=== PATIENT | female | born 1980 | race African-American/Black ===

== ENCOUNTER 2019-09-11 08:39 | Inpatient (IN) | payer BC ==
[2019-09-11] MEDS ORDERED: FLU VACC QUAD 2019-20 (3 YR UP)/PF 60 MCG/0.5 ML SYRINGE IM ONE (10:06)
[2019-09-11] MEDS ORDERED: TERBUTALINE 1 MG/1 ML INJ SUB-Q PRN (10:56)
[2019-09-11] MEDS ORDERED: ONDANSETRON 4 MG/2 ML INJ IV PRN (10:56)
[2019-09-11] MEDS ORDERED: ePHEDrine SULFATE 50 MG/1 ML INJ IV PRN (10:56)
[2019-09-11] MEDS ORDERED: MINERAL OIL 30 ML ORAL LIQD PO PRN (10:56)
[2019-09-11] MEDS ORDERED: TERBUTALINE 1 MG/1 ML INJ IVP PRN (10:56)
[2019-09-11] MEDS ORDERED: DEXTROSE 50% IN WATER (25GM) 50 ML SYRINGE IV PRN (10:58)
[2019-09-11] MEDS ORDERED: OXYTOCIN 20 UNIT/1000ML DRIP 20 UNITS/1,000 ML BAG IV SCH (11:00)
[2019-09-11 11:20] LABS: Hematocrit 32.7 % (30.3-42.9); Hemoglobin 10.8 gm/dl (10.1-14.3); Mean Corpuscular HGB Conc 33 % (30-34); Mean Corpuscular Volume 85 fl (79-97); Platelet Count 218 K/mm3 (140-440); Red Blood Count 3.83 M/mm3 (3.65-5.03); Red Cell Distribution Width 13.7 % (13.2-15.2)
[2019-09-11] MEDS: LACTATED RINGERS 1,000 ML IV SCH ×2 (11:24→16:59)
[2019-09-11] MEDS ORDERED: INSULIN REGULAR, HUMAN 100 UNITS/1 ML SUB-Q SCH (11:30)
[2019-09-11] MEDS ORDERED: LIDOCAINE (2%) 20 MG/1 ML VIAL 20 ML MDV INFILTRATI ONE (11:56)
[2019-09-11] MEDS ORDERED: DINOPROSTONE 10 MG VAG SUPP VG ONE (12:00)
[2019-09-11] MEDS: INSULIN REGULAR, HUMAN 100 UNITS/1 ML SUB-Q SCH ×2 (12:00→18:12)
--- NOTE | 2019-09-11 12:43 | History and Physical Report ---
History of Present Illness Date of examination: 09/11/19 (Pt here for IOL due to insulin dependent GDM) Date of admission: 09/11/19 08:40 Chief complaint: Here for IOL d/t GDM, insulin dependent. History of present illness: EDC Calculations LMP: 09/13/2019 EDC Confirmation: 09/13/2019 Gestational Age: 19 5/7 weeks Past History : 2 Term Births: 1 Premature Births: 0 Living Children: 1 Para: 1 Mult. Births: 0 Prev : 0 Prev. attempt? 0 Aborta: 0 Elect. Ab: 0 Spont. 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 lives with and soledad unemployed denies alcohol or drug use Infection History Hx of STD: none HIV Risk Eval: no Hepatitis B Risk Eval: low risk Personal hx. of genital herpes: no Partner hx. of genital herpes: no Rash, Viral, or Febrile illness since last LMP? no Varicella/Chicken Pox Status: Unknown TB Risk: no Genetic History ADVANCED MATERNAL AGE Congenital Heart Defect: Mom: no Dad: no Jocelyne Disease: Mom: no Dad: no Thalassemia Mom: no Dad: no Neural Tube Defect Mom: no Dad: no Down's Syndrome Mom: no Dad: no Richie-Sachs Mom: no Dad: no Sickle Cell Disease/Trait Mom: no Dad: no Hemophilia Mom: no Dad: no Muscular Dystrophy Mom: no Dad: no Cystic Fibrosis Mom: no Dad: no [place] Chorea Mom: no Dad: no Mental Retardation Mom: no Dad: no Fragile X Mom: no Dad: no Other Genetic/Chromosomal Disorder Mom: no Dad: no Child w/other defect Mom: no Dad: no Enviromental Exposures Enviromental Exposures Reviewed Xray Exposure: no Medication, drug, or alcohol use since LMP: no Chemical/Other Exposure: no Exposure to Cat Liter: no Hx of Parvovirus (Fifth Disease): no Occupational Exposure to Children: none Active Medications (reviewed today): PNV () Current Allergies (reviewed today): No known allergies Past History Past Medical History: no pertinent history Past Surgical History: other (Left ovarian cystecomy) GIS COORDINATOR History: other (Left ovarian cystectomy) Family/Genetic History: none Social history: no significant social history - Obstetrical History Expected Date of Delivery: 09/13/19 Actual Gestation: 39 Week(s) 5 Day(s) : 2 Para: 1 Hx # Term Pregnancies: 1 Number of Pregnancies: 0 Spontaneous Abortions: 0 Induced : 0 Number of Living Children: 1 Medications and Allergies Allergies Allergy/AdvReac Type Severity Reaction Status Date / Time No Known Allergies Allergy Verified 09/11/19 09:59 Active Meds: Active Medications Dextrose (D50w (25gm) Syringe) 50 ml IV Q30MIN PRN; Protocol PRN Reason: Hypoglycemia Ephedrine Sulfate (Ephedrine Sulfate) 10 mg IV Q2M PRN PRN Reason: Hypotension Fentanyl (Sublimaze) 100 mcg IV Q2H PRN PRN Reason: Labor Pain Oxytocin/Sodium Chloride (Pitocin/Ns 20 Unit/1000ml Drip) 20 units in 1,000 mls @ 125 mls/hr IV DIRECT TAMIKA Lactated Ringer's (Lactated Ringers) 1,000 mls @ 125 mls/hr IV DIRECT TAMIKA Last Admin: 09/11/19 11:24 Dose: 125 mls/hr Documented by: Insulin Human Regular (Humulin R) 0 units SUB-Q Q6HR TAMIKA; Protocol Mineral Oil (Mineral Oil) 30 ml PO QHS PRN PRN Reason: Constipation Ondansetron HCl (Zofran) 4 mg IV Q8H PRN PRN Reason: Nausea And Vomiting Terbutaline Sulfate (Brethine) 0.25 mg SUB-Q ONCE PRN PRN Reason: Hyperstimulation/Hypertonicity Terbutaline Sulfate (Brethine) 0.25 mg IVP ONCE PRN PRN Reason: Hyperstimulation/Hypertonicity - Vital Signs Vital signs: Vital Signs Pulse BP 122 H 112/65 09/11/19 09:11 09/11/19 09:11 Temp Pulse Resp BP Pulse Ox 98.5 F 110 H 18 107/63 99 09/11/19 10:07 09/11/19 12:33 09/11/19 10:07 09/11/19 10:08 09/11/19 12:33 - Physical Exam Breasts: Positive: deferred Cardiovascular: Regular rate Lungs: Positive: Normal air movement Abdomen: Positive: normal appearance Genitourinary (Female): Positive: normal external genitalia, normal perenium Vulva: both: normal Vagina: Positive: normal moisture Uterus: Positive: normal size Anus/Rectum: Positive: normal perianal skin Extremities: Positive: normal Deep Tendon Reflex Grade: Normal +2 - Obstetrical FHR: category 1 Uterine Contraction Monitor Mode: External Cervical Dilatation: 0 (Per RN taking care of patient) Cervical Effacement Percentage: 0 station: High Uterine Contraction Pattern: Irregular Uterine Tone Measurement Phase: Resting Uterine Contraction Intensity: Mild Results Result Diagrams: 09/11/19 10:50 Abnormal lab results 09/11/19 Range/Units 10:50 WBC 12.7 H (4.5-11.0) K/mm3 All other labs normal. GBS negative Hep B positive HBsAg Screen "Result Below..." Negative *1 RESULT: Confirm. indicated Tests: (2) HBsAg Confirmation ([id number]) ! HBsAg Confirmation [A] Positive *2 Result confirmed by neutralization. Tests: (3) Profile I ([id number]) RPR Non Reactive Non Reactive *3 Rubella Antibodies, IgG 1.93 index Immune >0.99 *4 Non-immune <0.90 Equivocal 0.90 - 0.99 Immune >0.99 ABO Grouping O *5 Rh Factor Positive *6 Please note: Prior records for this patient's ABO / Rh type are not available for additional verification. Antibody Screen Negative Negative *7 WBC [H] 13.2 x10E3/uL 3.4-10.8 *8 RBC 3.78 x10E6/uL 3.77-5.28 *9 Hemoglobin 11.1 g/dL 11.1-15.9 *10 Hematocrit 34.4 % 34.0-46.6 *11 MCV 91 fL 79-97 *12 MCH 29.4 pg 26.6-33.0 *13 MCHC 32.3 g/dL 31.5-35.7 *14 RDW 14.5 % 12.3-15.4 *15 Platelets 238 x10E3/uL 150-450 *16 Neutrophils 76 % Not Estab. *17 Lymphs 16 % Not Estab. *18 Monocytes 6 % Not Estab. *19 Eos 1 % Not Estab. *20 Basos 0 % Not Estab. *21 ! Immature Cells <No Reported Value> *22 Neutrophils (Absolute) [H] 10.0 x10E3/uL 1.4-7.0 *23 Lymphs (Absolute) 2.2 x10E3/uL 0.7-3.1 *24 Monocytes(Absolute) 0.8 x10E3/uL 0.1-0.9 *25 Eos (Absolute) 0.1 x10E3/uL 0.0-0.4 *26 Baso (Absolute) 0.0 x10E3/uL 0.0-0.2 *27 ! Immature Granulocytes 1 % Not Estab. *28 ! Immature Grans (Abs) 0.1 x10E3/uL 0.0-0.1 *29 ! NRBC <No Reported Value> *30 Hematology Comments: <No Reported Value> *31 Tests: (4) HB Solu + Rflx [facility] ([id number]) Hemoglobin (Hgb) Solubility Negative Negative *32 Tests: (5) Panel [id number] ([id number]) HIV Screen 4th Generation wRfx Non Reactive Non Reactive *33 Tests: (6) HCV Ab w/Rflx to Verification ([id number]) ! HCV Ab <0.1 s/co ratio 0.0-0.9 *34 Tests: (7) Comment: ([id number]) ! Comment: [facility] *35 Non reactive HCV antibody screen is consistent with no HCV infection, unless recent infection is suspected or other evidence exists to indicate HCV infection. Tests: (8) Urine Culture, Routine ([id number]) Urine Culture, Routine Final report *36 Tests: (9) Result ([id number]) ! Result 1 No growth *37 Assessment and Plan A: 39 y.o. @ 39 wks + for IOL d/t GDM. Cervidil placed at 1000am. GBS negative, Hep B positive. P: Admit for IOL Cervidil to be taken out at 10pm Monitor blood glucose q 6 hours and AC/HS - Patient Problems (1) 39 weeks gestation of Current Visit: Yes Status: Acute Plan to address problem: IOL, Monitor maternal and status. (2) Insulin controlled gestational diabetes mellitus (GDM) in third trimester Current Visit: Yes Status: Acute Plan to address problem: Will monitor blood glucose levels q 6 hours and AC/HS. Hypoglycemia to be managed per protocol.
[2019-09-11] MEDS ORDERED: ZOLPIDEM 5 MG TAB PO PRN (15:54)
--- NOTE | 2019-09-11 16:03 | Progress Note ---
Assessment and Plan A: 39 y.o. 39+ wks here for IOL d/t GDM, insulin controlled. P: Regular diabetic diet tonight. Remove Cervidil at 2200. Additional cervidil to be placed at 2200. Continue to monitor maternal and status. - Patient Problems (1) 39 weeks gestation of Current Visit: Yes Status: Acute (2) Insulin controlled gestational diabetes mellitus (GDM) in third trimester Current Visit: Yes Status: Acute Subjective - Subjective Date of service: 09/11/19 (Pt feeling some contractions) Interval history: EDC Calculations LMP: 09/13/2019 EDC Confirmation: 09/13/2019 Gestational Age: 19 5/7 weeks Past History : 2 Term Births: 1 Premature Births: 0 Living Children: 1 Para: 1 Mult. Births: 0 Prev : 0 Prev. attempt? 0 Aborta: 0 Elect. Ab: 0 Spont. 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 lives with and soledad unemployed denies alcohol or drug use Infection History Hx of STD: none HIV Risk Eval: no Hepatitis B Risk Eval: low risk Personal hx. of genital herpes: no Partner hx. of genital herpes: no Rash, Viral, or Febrile illness since last LMP? no Varicella/Chicken Pox Status: Unknown TB Risk: no Genetic History ADVANCED MATERNAL AGE Congenital Heart Defect: Mom: no Dad: no Jocelyne Disease: Mom: no Dad: no Thalassemia Mom: no Dad: no Neural Tube Defect Mom: no Dad: no Down's Syndrome Mom: no Dad: no Richie-Sachs Mom: no Dad: no Sickle Cell Disease/Trait Mom: no Dad: no Hemophilia Mom: no Dad: no Muscular Dystrophy Mom: no Dad: no Cystic Fibrosis Mom: no Dad: no [place] Chorea Mom: no Dad: no Mental Retardation Mom: no Dad: no Fragile X Mom: no Dad: no Other Genetic/Chromosomal Disorder Mom: no Dad: no Child w/other defect Mom: no Dad: no Enviromental Exposures Enviromental Exposures Reviewed Xray Exposure: no Medication, drug, or alcohol use since LMP: no Chemical/Other Exposure: no Exposure to Cat Liter: no Hx of Parvovirus (Fifth Disease): no Occupational Exposure to Children: none Active Medications (reviewed today): PNV () Current Allergies (reviewed today): No known allergies Objective - Vital Signs Vital Signs: Vital Signs - 12hr 09/11/19 09/11/19 09/11/19 09:11 10:07 10:08 Temperature 98.5 F Pulse Rate 122 H 96 H 113 H Respiratory 18 Rate Blood Pressure 112/65 107/63 Blood Pressure 107/63 [Right] O2 Sat by Pulse 98 Oximetry 09/11/19 09/11/19 09/11/19 10:18 10:23 10:28 Temperature Pulse Rate 112 H 107 H 115 H Respiratory Rate Blood Pressure Blood Pressure [Right] O2 Sat by Pulse 97 98 98 Oximetry 09/11/19 09/11/19 09/11/19 10:33 10:38 10:43 Temperature Pulse Rate 112 H 126 H 127 H Respiratory Rate Blood Pressure Blood Pressure [Right] O2 Sat by Pulse 99 98 99 Oximetry 09/11/19 09/11/19 09/11/19 10:48 10:53 10:58 Temperature Pulse Rate 120 H 107 H 121 H Respiratory Rate Blood Pressure Blood Pressure [Right] O2 Sat by Pulse 98 98 98 Oximetry 09/11/19 09/11/19 09/11/19 11:03 11:08 11:13 Temperature Pulse Rate 105 H 121 H 114 H Respiratory Rate Blood Pressure Blood Pressure [Right] O2 Sat by Pulse 99 99 98 Oximetry 09/11/19 09/11/19 09/11/19 11:18 11:23 11:28 Temperature Pulse Rate 115 H 111 H 111 H Respiratory Rate Blood Pressure Blood Pressure [Right] O2 Sat by Pulse 98 98 98 Oximetry 09/11/19 09/11/19 09/11/19 11:33 11:38 11:43 Temperature Pulse Rate 108 H 110 H 119 H Respiratory Rate Blood Pressure Blood Pressure [Right] O2 Sat by Pulse 99 98 99 Oximetry 09/11/19 09/11/19 09/11/19 11:48 11:53 11:58 Temperature Pulse Rate 115 H 114 H 107 H Respiratory Rate Blood Pressure Blood Pressure [Right] O2 Sat by Pulse 99 98 98 Oximetry 09/11/19 09/11/19 09/11/19 12:03 12:08 12:13 Temperature Pulse Rate 116 H 109 H 109 H Respiratory Rate Blood Pressure Blood Pressure [Right] O2 Sat by Pulse 98 98 98 Oximetry 09/11/19 09/11/19 09/11/19 12:18 12:23 12:28 Temperature Pulse Rate 115 H 109 H 123 H Respiratory Rate Blood Pressure Blood Pressure [Right] O2 Sat by Pulse 98 99 98 Oximetry 09/11/19 09/11/19 09/11/19 12:33 12:38 12:43 Temperature Pulse Rate 110 H 108 H 121 H Respiratory Rate Blood Pressure Blood Pressure [Right] O2 Sat by Pulse 99 98 98 Oximetry 09/11/19 09/11/19 09/11/19 12:48 12:53 12:58 Temperature Pulse Rate 112 H 112 H 111 H Respiratory Rate Blood Pressure Blood Pressure [Right] O2 Sat by Pulse 98 98 98 Oximetry 09/11/19 09/11/19 09/11/19 13:03 13:08 13:13 Temperature Pulse Rate 115 H 101 H 106 H Respiratory Rate Blood Pressure Blood Pressure [Right] O2 Sat by Pulse 97 98 97 Oximetry 09/11/19 09/11/19 09/11/19 13:18 13:23 13:28 Temperature Pulse Rate 101 H 103 H 106 H Respiratory Rate Blood Pressure Blood Pressure [Right] O2 Sat by Pulse 98 97 97 Oximetry 09/11/19 09/11/19 09/11/19 13:33 13:38 13:43 Temperature Pulse Rate 111 H 111 H 115 H Respiratory Rate Blood Pressure Blood Pressure [Right] O2 Sat by Pulse 97 97 98 Oximetry 09/11/19 09/11/19 09/11/19 13:48 13:53 13:56 Temperature Pulse Rate 122 H 110 H 116 H Respiratory 16 Rate Blood Pressure Blood Pressure 107/63 [Right] O2 Sat by Pulse 97 98 98 Oximetry 09/11/19 09/11/19 09/11/19 13:58 14:03 14:08 Temperature Pulse Rate 114 H 118 H 107 H Respiratory Rate Blood Pressure Blood Pressure [Right] O2 Sat by Pulse 98 98 99 Oximetry 09/11/19 09/11/19 09/11/19 14:13 14:18 14:23 Temperature Pulse Rate 109 H 110 H 114 H Respiratory Rate Blood Pressure Blood Pressure [Right] O2 Sat by Pulse 98 98 98 Oximetry 09/11/19 09/11/19 09/11/19 14:28 14:33 14:38 Temperature Pulse Rate 111 H 105 H 110 H Respiratory Rate Blood Pressure Blood Pressure [Right] O2 Sat by Pulse 98 98 98 Oximetry 09/11/19 09/11/19 09/11/19 14:43 14:48 15:17 Temperature Pulse Rate 111 H 119 H 111 H Respiratory Rate Blood Pressure Blood Pressure [Right] O2 Sat by Pulse 98 98 99 Oximetry 09/11/19 09/11/19 09/11/19 15:22 15:23 15:24 Temperature 98.8 F Pulse Rate 102 H 107 H 108 H Respiratory 18 Rate Blood Pressure 103/67 Blood Pressure 103/67 [Right] O2 Sat by Pulse 98 98 Oximetry 09/11/19 09/11/19 09/11/19 15:27 15:32 15:37 Temperature Pulse Rate 111 H 102 H 109 H Respiratory Rate Blood Pressure Blood Pressure [Right] O2 Sat by Pulse 99 98 98 Oximetry 09/11/19 09/11/19 09/11/19 15:42 15:47 15:52 Temperature Pulse Rate 109 H 127 H 108 H Respiratory Rate Blood Pressure Blood Pressure [Right] O2 Sat by Pulse 98 98 99 Oximetry 09/11/19 15:57 Temperature Pulse Rate 101 H Respiratory Rate Blood Pressure Blood Pressure [Right] O2 Sat by Pulse 97 Oximetry - Exam Cardiovascular: Regular rate, Normal S1, Normal S2 Lungs: Normal air movement Abdomen: Present: normal appearance Uterine Contraction Pattern: Irregular Uterine Tone Measurement Phase: Resting Uterine Contraction Intensity: Mild Extremities: normal Deep Tendon Reflex Grade: Normal +2 - Labs Labs: Abnormal Labs 09/11/19 10:50 WBC 12.7 H Laboratory Results - last 24 hr 09/11/19 09/11/19 09/11/19 10:50 10:50 10:50 WBC 12.7 H RBC 3.83 Hgb 10.8 Hct 32.7 MCV 85 MCH 28 MCHC 33 RDW 13.7 Plt Count 218 POC Glucose Hemoglobin A1c 5.5 Syphilis IgG Antibody Blood Type O POSITIVE Antibody Screen Negative 09/11/19 09/11/19 10:50 11:53 WBC RBC Hgb Hct MCV MCH MCHC RDW Plt Count POC Glucose 100 Hemoglobin A1c Syphilis IgG Antibody Non-reactive Blood Type Antibody Screen
[2019-09-11] MEDS: fentaNYL 100 MCG/2 ML INJ IV PRN ×2 (17:28→20:54)
--- NOTE | 2019-09-11 19:50 | Progress Note ---
Assessment and Plan A: 39 y.o. 38+ wks, IOL for GDM, insulin dependent. P: Continue with cervidil protocol until pulled. When cervidil pulled, start low dose pitocin. Continue to monitor maternal and status. - Patient Problems (1) 39 weeks gestation of Current Visit: Yes Status: Acute (2) Insulin controlled gestational diabetes mellitus (GDM) in third trimester Current Visit: Yes Status: Acute Subjective - Subjective Date of service: 09/11/19 (Pt feeling some contractions.) Principal diagnosis: IOL # 38 wks for GDM, insulin dependent Interval history: EDC Calculations LMP: 09/13/2019 EDC Confirmation: 09/13/2019 Gestational Age: 19 5/7 weeks Past History : 2 Term Births: 1 Premature Births: 0 Living Children: 1 Para: 1 Mult. Births: 0 Prev : 0 Prev. attempt? 0 Aborta: 0 Elect. Ab: 0 Spont. 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 lives with and soledad unemployed denies alcohol or drug use Infection History Hx of STD: none HIV Risk Eval: no Hepatitis B Risk Eval: low risk Personal hx. of genital herpes: no Partner hx. of genital herpes: no Rash, Viral, or Febrile illness since last LMP? no Varicella/Chicken Pox Status: Unknown TB Risk: no Genetic History ADVANCED MATERNAL AGE Congenital Heart Defect: Mom: no Dad: no Jocelyne Disease: Mom: no Dad: no Thalassemia Mom: no Dad: no Neural Tube Defect Mom: no Dad: no Down's Syndrome Mom: no Dad: no Richie-Sachs Mom: no Dad: no Sickle Cell Disease/Trait Mom: no Dad: no Hemophilia Mom: no Dad: no Muscular Dystrophy Mom: no Dad: no Cystic Fibrosis Mom: no Dad: no [place] Chorea Mom: no Dad: no Mental Retardation Mom: no Dad: no Fragile X Mom: no Dad: no Other Genetic/Chromosomal Disorder Mom: no Dad: no Child w/other defect Mom: no Dad: no Enviromental Exposures Enviromental Exposures Reviewed Xray Exposure: no Medication, drug, or alcohol use since LMP: no Chemical/Other Exposure: no Exposure to Cat Liter: no Hx of Parvovirus (Fifth Disease): no Occupational Exposure to Children: none Active Medications (reviewed today): PNV () Current Allergies (reviewed today): No known allergies Objective - Vital Signs Vital Signs: Vital Signs - 12hr 09/11/19 09/11/19 09/11/19 09:11 10:07 10:08 Temperature 98.5 F Pulse Rate 122 H 96 H 113 H Respiratory 18 Rate Blood Pressure 112/65 107/63 Blood Pressure 107/63 [Right] O2 Sat by Pulse 98 Oximetry 09/11/19 09/11/19 09/11/19 10:18 10:23 10:28 Temperature Pulse Rate 112 H 107 H 115 H Respiratory Rate Blood Pressure Blood Pressure [Right] O2 Sat by Pulse 97 98 98 Oximetry 09/11/19 09/11/19 09/11/19 10:33 10:38 10:43 Temperature Pulse Rate 112 H 126 H 127 H Respiratory Rate Blood Pressure Blood Pressure [Right] O2 Sat by Pulse 99 98 99 Oximetry 09/11/19 09/11/19 09/11/19 10:48 10:53 10:58 Temperature Pulse Rate 120 H 107 H 121 H Respiratory Rate Blood Pressure Blood Pressure [Right] O2 Sat by Pulse 98 98 98 Oximetry 09/11/19 09/11/19 09/11/19 11:03 11:08 11:13 Temperature Pulse Rate 105 H 121 H 114 H Respiratory Rate Blood Pressure Blood Pressure [Right] O2 Sat by Pulse 99 99 98 Oximetry 09/11/19 09/11/19 09/11/19 11:18 11:23 11:28 Temperature Pulse Rate 115 H 111 H 111 H Respiratory Rate Blood Pressure Blood Pressure [Right] O2 Sat by Pulse 98 98 98 Oximetry 09/11/19 09/11/19 09/11/19 11:33 11:38 11:43 Temperature Pulse Rate 108 H 110 H 119 H Respiratory Rate Blood Pressure Blood Pressure [Right] O2 Sat by Pulse 99 98 99 Oximetry 09/11/19 09/11/19 09/11/19 11:48 11:53 11:58 Temperature Pulse Rate 115 H 114 H 107 H Respiratory Rate Blood Pressure Blood Pressure [Right] O2 Sat by Pulse 99 98 98 Oximetry 09/11/19 09/11/19 09/11/19 12:03 12:08 12:13 Temperature Pulse Rate 116 H 109 H 109 H Respiratory Rate Blood Pressure Blood Pressure [Right] O2 Sat by Pulse 98 98 98 Oximetry 09/11/19 09/11/19 09/11/19 12:18 12:23 12:28 Temperature Pulse Rate 115 H 109 H 123 H Respiratory Rate Blood Pressure Blood Pressure [Right] O2 Sat by Pulse 98 99 98 Oximetry 09/11/19 09/11/19 09/11/19 12:33 12:38 12:43 Temperature Pulse Rate 110 H 108 H 121 H Respiratory Rate Blood Pressure Blood Pressure [Right] O2 Sat by Pulse 99 98 98 Oximetry 09/11/19 09/11/19 09/11/19 12:48 12:53 12:58 Temperature Pulse Rate 112 H 112 H 111 H Respiratory Rate Blood Pressure Blood Pressure [Right] O2 Sat by Pulse 98 98 98 Oximetry 09/11/19 09/11/19 09/11/19 13:03 13:08 13:13 Temperature Pulse Rate 115 H 101 H 106 H Respiratory Rate Blood Pressure Blood Pressure [Right] O2 Sat by Pulse 97 98 97 Oximetry 09/11/19 09/11/19 09/11/19 13:18 13:23 13:28 Temperature Pulse Rate 101 H 103 H 106 H Respiratory Rate Blood Pressure Blood Pressure [Right] O2 Sat by Pulse 98 97 97 Oximetry 09/11/19 09/11/19 09/11/19 13:33 13:38 13:43 Temperature Pulse Rate 111 H 111 H 115 H Respiratory Rate Blood Pressure Blood Pressure [Right] O2 Sat by Pulse 97 97 98 Oximetry 09/11/19 09/11/19 09/11/19 13:48 13:53 13:56 Temperature Pulse Rate 122 H 110 H 116 H Respiratory 16 Rate Blood Pressure Blood Pressure 107/63 [Right] O2 Sat by Pulse 97 98 98 Oximetry 09/11/19 09/11/19 09/11/19 13:58 14:03 14:08 Temperature Pulse Rate 114 H 118 H 107 H Respiratory Rate Blood Pressure Blood Pressure [Right] O2 Sat by Pulse 98 98 99 Oximetry 09/11/19 09/11/19 09/11/19 14:13 14:18 14:23 Temperature Pulse Rate 109 H 110 H 114 H Respiratory Rate Blood Pressure Blood Pressure [Right] O2 Sat by Pulse 98 98 98 Oximetry 09/11/19 09/11/19 09/11/19 14:28 14:33 14:38 Temperature Pulse Rate 111 H 105 H 110 H Respiratory Rate Blood Pressure Blood Pressure [Right] O2 Sat by Pulse 98 98 98 Oximetry 09/11/19 09/11/19 09/11/19 14:43 14:48 15:17 Temperature Pulse Rate 111 H 119 H 111 H Respiratory Rate Blood Pressure Blood Pressure [Right] O2 Sat by Pulse 98 98 99 Oximetry 09/11/19 09/11/19 09/11/19 15:22 15:23 15:24 Temperature 98.8 F Pulse Rate 102 H 107 H 108 H Respiratory 18 Rate Blood Pressure 103/67 Blood Pressure 103/67 [Right] O2 Sat by Pulse 98 98 Oximetry 09/11/19 09/11/19 09/11/19 15:27 15:32 15:37 Temperature Pulse Rate 111 H 102 H 109 H Respiratory Rate Blood Pressure Blood Pressure [Right] O2 Sat by Pulse 99 98 98 Oximetry 09/11/19 09/11/19 09/11/19 15:42 15:47 15:52 Temperature Pulse Rate 109 H 127 H 108 H Respiratory Rate Blood Pressure Blood Pressure [Right] O2 Sat by Pulse 98 98 99 Oximetry 09/11/19 09/11/19 09/11/19 15:57 16:02 16:07 Temperature Pulse Rate 101 H 120 H 106 H Respiratory Rate Blood Pressure Blood Pressure [Right] O2 Sat by Pulse 97 98 99 Oximetry 09/11/19 09/11/19 09/11/19 16:12 16:17 16:20 Temperature Pulse Rate 123 H 118 H 115 H Respiratory Rate Blood Pressure 114/66 Blood Pressure [Right] O2 Sat by Pulse 98 98 Oximetry 09/11/19 09/11/19 09/11/19 16:22 16:27 16:32 Temperature Pulse Rate 107 H 118 H 105 H Respiratory Rate Blood Pressure Blood Pressure [Right] O2 Sat by Pulse 98 99 98 Oximetry 09/11/19 09/11/19 09/11/19 16:37 16:42 16:47 Temperature Pulse Rate 114 H 113 H 115 H Respiratory Rate Blood Pressure Blood Pressure [Right] O2 Sat by Pulse 98 98 99 Oximetry 09/11/19 09/11/19 09/11/19 16:52 16:53 16:57 Temperature 99 F Pulse Rate 113 H 120 H Respiratory Rate Blood Pressure Blood Pressure [Right] O2 Sat by Pulse 99 99 Oximetry 09/11/19 09/11/19 09/11/19 17:02 17:07 17:12 Temperature Pulse Rate 118 H 108 H 99 H Respiratory Rate Blood Pressure Blood Pressure [Right] O2 Sat by Pulse 98 98 98 Oximetry 09/11/19 09/11/19 09/11/19 17:17 17:20 17:22 Temperature Pulse Rate 113 H 98 H 99 H Respiratory Rate Blood Pressure 109/60 Blood Pressure [Right] O2 Sat by Pulse 98 97 Oximetry 09/11/19 09/11/19 09/11/19 17:27 17:28 17:32 Temperature Pulse Rate 108 H 106 H Respiratory 16 Rate Blood Pressure Blood Pressure [Right] O2 Sat by Pulse 98 98 Oximetry 09/11/19 09/11/19 09/11/19 17:37 17:42 17:47 Temperature Pulse Rate 105 H 100 H 98 H Respiratory Rate Blood Pressure Blood Pressure [Right] O2 Sat by Pulse 98 98 99 Oximetry 09/11/19 09/11/19 09/11/19 17:52 17:57 18:02 Temperature Pulse Rate 100 H 98 H 97 H Respiratory Rate Blood Pressure Blood Pressure [Right] O2 Sat by Pulse 97 97 97 Oximetry 09/11/19 09/11/19 09/11/19 18:07 18:12 18:17 Temperature Pulse Rate 98 H 108 H 104 H Respiratory Rate Blood Pressure Blood Pressure [Right] O2 Sat by Pulse 98 98 99 Oximetry 09/11/19 09/11/19 09/11/19 18:20 18:22 18:27 Temperature Pulse Rate 106 H 101 H 98 H Respiratory Rate Blood Pressure 110/65 Blood Pressure [Right] O2 Sat by Pulse 99 98 Oximetry 09/11/19 09/11/19 09/11/19 18:32 18:37 18:42 Temperature Pulse Rate 101 H 103 H 103 H Respiratory Rate Blood Pressure Blood Pressure [Right] O2 Sat by Pulse 99 99 98 Oximetry 09/11/19 09/11/19 09/11/19 18:47 18:52 18:57 Temperature Pulse Rate 95 H 94 H 93 H Respiratory Rate Blood Pressure Blood Pressure [Right] O2 Sat by Pulse 98 97 97 Oximetry 09/11/19 09/11/19 09/11/19 19:02 19:07 19:12 Temperature Pulse Rate 94 H 96 H 97 H Respiratory Rate Blood Pressure Blood Pressure [Right] O2 Sat by Pulse 98 97 98 Oximetry 09/11/19 09/11/19 09/11/19 19:17 19:20 19:22 Temperature Pulse Rate 101 H 97 H 95 H Respiratory Rate Blood Pressure 122/58 Blood Pressure [Right] O2 Sat by Pulse 98 98 Oximetry 09/11/19 09/11/19 09/11/19 19:27 19:32 19:37 Temperature Pulse Rate 114 H 102 H 92 H Respiratory Rate Blood Pressure Blood Pressure [Right] O2 Sat by Pulse 99 99 98 Oximetry 09/11/19 19:42 Temperature Pulse Rate 103 H Respiratory Rate Blood Pressure Blood Pressure [Right] O2 Sat by Pulse 99 Oximetry - Exam Breasts: deferred Abdomen: Present: normal appearance Vulva: both: normal Uterus: Present: normal FHR: category 1 Uterine Contraction Monitor Mode: External Uterine Contraction Pattern: Regular Uterine Tone Measurement Phase: Resting Uterine Contraction Intensity: Moderate Extremities: normal Deep Tendon Reflex Grade: Normal +2 - Labs Labs: Abnormal Labs 09/11/19 09/11/19 10:50 17:00 WBC 12.7 H POC Glucose 69 L Laboratory Results - last 24 hr 09/11/19 09/11/19 09/11/19 10:50 10:50 10:50 WBC 12.7 H RBC 3.83 Hgb 10.8 Hct 32.7 MCV 85 MCH 28 MCHC 33 RDW 13.7 Plt Count 218 POC Glucose Hemoglobin A1c 5.5 Syphilis IgG Antibody Blood Type O POSITIVE Antibody Screen Negative 09/11/19 09/11/19 09/11/19 10:50 11:53 17:00 WBC RBC Hgb Hct MCV MCH MCHC RDW Plt Count POC Glucose 100 69 L Hemoglobin A1c Syphilis IgG Antibody Non-reactive Blood Type Antibody Screen 09/11/19 18:13 WBC RBC Hgb Hct MCV MCH MCHC RDW Plt Count POC Glucose 72 Hemoglobin A1c Syphilis IgG Antibody Blood Type Antibody Screen
[2019-09-12] MEDS ORDERED: OXYTOCIN DRIP 30,000 MILLIUNITS/500 ML BAG IV ONE (00:21)
[2019-09-12] MEDS: BUTORPHANOL 2 MG/1 ML INJ IV PRN ×2 (00:38→04:35)
[2019-09-12] MEDS: LACTATED RINGERS 1,000 ML IV SCH ×4 (00:40→11:00)
[2019-09-12] MEDS ORDERED: ePHEDrine SULFATE 50 MG/1 ML INJ IV PRN (06:39)
[2019-09-12] MEDS ORDERED: NALOXONE 2 MG/2 ML INJ IV PRN (06:39)
--- NOTE | 2019-09-12 06:41 | Anesthesia Consultation ---
Anesthesia Consult and Med Hx Date of service: 09/12/19 - Airway Anesthetic Teeth Evaluation: Good ROM Head & Neck: Adequate Mental/Hyoid Distance: Adequate Mallampati Class: Class II Intubation Access Assessment: Good - Pulmonary Exam CTA: Yes - Cardiac Exam Cardiac Exam: RRR - Pre-Operative Health Status ASA Pre-Surgery Classification: ASA2, Emergency Proposed Anesthetic Plan: Epidural - Pulmonary Hx Asthma: No COPD: No Hx Pneumonia: No - Cardiovascular System Hx Hypertension: No - Central Nervous System Hx Seizures: No Hx Psychiatric Problems: No - Endocrine Hx Renal Disease: No Hx End Stage Renal Disease: No Hx Non-Insulin Dependent Diabetes: Yes (gDM) Hx Hypothyroidism: No Hx Hyperthyroidism: No - Hematic Hx Anemia: No Hx Sickle Cell Disease: No - Other Systems Hx Alcohol Use: No
[2019-09-12] MEDS ORDERED: ePHEDrine SULFATE 50 MG/1 ML INJ ONE (06:45)
[2019-09-12] MEDS ORDERED: DEXMEDETOMIDINE 200 MCG/2 ML VIAL IV ONE (06:45)
[2019-09-12] MEDS ORDERED: fentaNYL-BUPIV 2 MCG/ML-0.125% 200 MCG/100 ML BAG EPIDURAL SCH (07:00)
--- NOTE | 2019-09-12 07:35 | Progress Note ---
Assessment and Plan patient resting comfortably s/p epidural. no complaints. SROM clear. anticipate . - Patient Problems (1) Insulin controlled gestational diabetes mellitus (GDM) in third trimester Current Visit: Yes Status: Acute Plan to address problem: continue current management (2) 39 weeks gestation of Current Visit: Yes Status: Acute Subjective - Subjective Date of service: 09/12/19 Principal diagnosis: IUP @ 39+6wks: IOL for GDM, insulin dependent Patient reports: no new complaints (comfortable with epidural) Objective - Vital Signs Vital Signs: Vital Signs - 12hr 09/11/19 09/11/19 09/11/19 19:37 19:42 19:47 Temperature Pulse Rate 92 H 103 H 98 H Respiratory Rate Blood Pressure Blood Pressure [Right] O2 Sat by Pulse 98 99 99 Oximetry 09/11/19 09/11/19 09/11/19 19:52 19:57 20:02 Temperature Pulse Rate 89 101 H 97 H Respiratory Rate Blood Pressure Blood Pressure [Right] O2 Sat by Pulse 99 98 99 Oximetry 09/11/19 09/11/19 09/11/19 20:07 20:12 20:17 Temperature Pulse Rate 96 H 106 H 106 H Respiratory Rate Blood Pressure Blood Pressure [Right] O2 Sat by Pulse 99 99 99 Oximetry 09/11/19 09/11/19 09/11/19 20:19 20:22 20:27 Temperature Pulse Rate 103 H 98 H 101 H Respiratory Rate Blood Pressure 114/64 Blood Pressure [Right] O2 Sat by Pulse 99 99 Oximetry 09/11/19 09/11/19 09/11/19 20:32 20:37 20:42 Temperature Pulse Rate 98 H 97 H 109 H Respiratory Rate Blood Pressure Blood Pressure [Right] O2 Sat by Pulse 98 99 99 Oximetry 09/11/19 09/11/19 09/11/19 20:54 20:59 21:04 Temperature Pulse Rate 95 H 111 H 93 H Respiratory 18 Rate Blood Pressure Blood Pressure [Right] O2 Sat by Pulse 99 97 98 Oximetry 09/11/19 09/11/19 09/11/19 21:09 21:10 21:14 Temperature 97.3 F L Pulse Rate 95 H 86 Respiratory 18 Rate Blood Pressure Blood Pressure [Right] O2 Sat by Pulse 97 98 Oximetry 09/11/19 09/11/19 09/11/19 21:19 21:20 21:21 Temperature Pulse Rate 112 H 99 H 105 H Respiratory Rate Blood Pressure 125/82 124/73 Blood Pressure [Right] O2 Sat by Pulse 98 Oximetry 09/11/19 09/11/19 09/11/19 21:24 21:29 21:34 Temperature Pulse Rate 94 H 91 H 93 H Respiratory Rate Blood Pressure Blood Pressure [Right] O2 Sat by Pulse 98 97 97 Oximetry 09/11/19 09/11/19 09/11/19 21:39 21:44 21:49 Temperature Pulse Rate 85 91 H 98 H Respiratory Rate Blood Pressure Blood Pressure [Right] O2 Sat by Pulse 97 97 97 Oximetry 09/11/19 09/11/19 09/11/19 21:54 21:59 22:04 Temperature Pulse Rate 90 102 H 98 H Respiratory Rate Blood Pressure Blood Pressure [Right] O2 Sat by Pulse 97 98 98 Oximetry 09/11/19 09/11/19 09/11/19 22:09 22:14 22:19 Temperature Pulse Rate 92 H 85 89 Respiratory Rate Blood Pressure 113/69 Blood Pressure [Right] O2 Sat by Pulse 98 98 98 Oximetry 09/11/19 09/11/19 09/11/19 22:24 22:29 22:34 Temperature Pulse Rate 92 H 90 89 Respiratory Rate Blood Pressure Blood Pressure [Right] O2 Sat by Pulse 97 98 97 Oximetry 09/11/19 09/11/19 09/11/19 22:39 22:44 22:49 Temperature Pulse Rate 89 94 H 95 H Respiratory Rate Blood Pressure Blood Pressure [Right] O2 Sat by Pulse 97 98 97 Oximetry 09/11/19 09/11/19 09/11/19 22:54 22:59 23:04 Temperature Pulse Rate 98 H 95 H 91 H Respiratory Rate Blood Pressure Blood Pressure [Right] O2 Sat by Pulse 98 98 97 Oximetry 09/11/19 09/11/19 09/11/19 23:09 23:14 23:19 Temperature Pulse Rate 98 H 97 H 109 H Respiratory Rate Blood Pressure 120/58 Blood Pressure [Right] O2 Sat by Pulse 98 98 97 Oximetry 09/11/19 09/11/19 09/11/19 23:24 23:29 23:34 Temperature Pulse Rate 101 H 101 H 100 H Respiratory Rate Blood Pressure Blood Pressure [Right] O2 Sat by Pulse 99 98 99 Oximetry 09/11/19 09/11/1909/11/19 23:39 23:44 23:49 Temperature Pulse Rate 90 97 H 111 H Respiratory Rate Blood Pressure Blood Pressure [Right] O2 Sat by Pulse 98 98 98 Oximetry 09/11/19 09/11/19 09/12/19 23:54 23:59 00:04 Temperature Pulse Rate 100 H 95 H 100 H Respiratory Rate Blood Pressure Blood Pressure [Right] O2 Sat by Pulse 98 99 98 Oximetry 09/12/19 09/12/19 09/12/19 00:09 00:14 00:19 Temperature Pulse Rate 103 H 102 H 96 H Respiratory Rate Blood Pressure 121/84 Blood Pressure [Right] O2 Sat by Pulse 98 99 96 Oximetry 09/12/19 09/12/19 09/12/19 00:24 00:29 00:32 Temperature Pulse Rate 99 H 99 H 82 Respiratory Rate Blood Pressure Blood Pressure [Right] O2 Sat by Pulse 98 99 91 Oximetry 09/12/19 09/12/19 09/12/19 00:34 00:38 00:39 Temperature Pulse Rate 101 H 98 H Respiratory 18 Rate Blood Pressure Blood Pressure [Right] O2 Sat by Pulse 98 98 Oximetry 09/12/19 09/12/19 09/12/19 00:44 00:49 00:54 Temperature Pulse Rate 101 H 102 H 100 H Respiratory Rate Blood Pressure Blood Pressure [Right] O2 Sat by Pulse 98 98 98 Oximetry 09/12/19 09/12/19 09/12/19 00:59 01:04 01:09 Temperature Pulse Rate 101 H 99 H 101 H Respiratory Rate Blood Pressure Blood Pressure [Right] O2 Sat by Pulse 96 98 97 Oximetry 09/12/19 09/12/19 09/12/19 01:14 01:19 01:24 Temperature Pulse Rate 95 H 98 H 99 H Respiratory Rate Blood Pressure 112/60 Blood Pressure [Right] O2 Sat by Pulse 97 97 98 Oximetry 09/12/19 09/12/19 09/12/19 01:29 01:34 01:39 Temperature Pulse Rate 98 H 97 H 98 H Respiratory Rate Blood Pressure Blood Pressure [Right] O2 Sat by Pulse 96 98 98 Oximetry 09/12/19 09/12/19 09/12/19 01:44 01:49 01:54 Temperature Pulse Rate 95 H 103 H 97 H Respiratory Rate Blood Pressure Blood Pressure [Right] O2 Sat by Pulse 97 97 95 Oximetry 09/12/19 09/12/19 09/12/19 01:59 02:04 02:09 Temperature Pulse Rate 107 H 103 H 98 H Respiratory Rate Blood Pressure Blood Pressure [Right] O2 Sat by Pulse 98 98 99 Oximetry 09/12/19 09/12/19 09/12/19 02:14 02:19 02:24 Temperature Pulse Rate 100 H 98 H 99 H Respiratory Rate Blood Pressure 122/74 Blood Pressure [Right] O2 Sat by Pulse 99 97 97 Oximetry 09/12/19 09/12/19 09/12/19 02:29 02:34 02:39 Temperature Pulse Rate 95 H 96 H 98 H Respiratory Rate Blood Pressure Blood Pressure [Right] O2 Sat by Pulse 97 98 97 Oximetry 09/12/19 09/12/19 09/12/19 02:44 02:49 02:54 Temperature Pulse Rate 98 H 101 H 98 H Respiratory Rate Blood Pressure Blood Pressure [Right] O2 Sat by Pulse 97 98 97 Oximetry 09/12/19 09/12/19 09/12/19 02:59 03:04 03:09 Temperature Pulse Rate 97 H 99 H 101 H Respiratory Rate Blood Pressure Blood Pressure [Right] O2 Sat by Pulse 97 97 97 Oximetry 09/12/19 09/12/19 09/12/19 03:14 03:19 03:22 Temperature Pulse Rate 100 H 106 H 80 Respiratory Rate Blood Pressure 121/74 Blood Pressure [Right] O2 Sat by Pulse 98 98 84 Oximetry 09/12/19 09/12/19 09/12/19 03:24 03:29 03:32 Temperature Pulse Rate 103 H 95 H 67 Respiratory Rate Blood Pressure Blood Pressure [Right] O2 Sat by Pulse 98 99 82 L Oximetry 09/12/19 09/12/19 09/12/19 03:34 03:39 03:44 Temperature Pulse Rate 109 H 115 H 98 H Respiratory Rate Blood Pressure Blood Pressure [Right] O2 Sat by Pulse 99 98 99 Oximetry 09/12/19 09/12/19 09/12/19 03:49 03:54 03:59 Temperature Pulse Rate 110 H 100 H 104 H Respiratory Rate Blood Pressure Blood Pressure [Right] O2 Sat by Pulse 97 98 99 Oximetry 09/12/19 09/12/19 09/12/19 04:04 04:05 04:09 Temperature Pulse Rate 105 H 97 H 107 H Respiratory Rate Blood Pressure Blood Pressure [Right] O2 Sat by Pulse 98 94 98 Oximetry 09/12/19 09/12/19 09/12/19 04:14 04:19 04:27 Temperature Pulse Rate 97 H 103 H 109 H Respiratory Rate Blood Pressure 121/78 Blood Pressure [Right] O2 Sat by Pulse 97 98 98 Oximetry 09/12/19 09/12/19 09/12/19 04:32 04:35 04:37 Temperature Pulse Rate 110 H 103 H Respiratory 18 Rate Blood Pressure Blood Pressure [Right] O2 Sat by Pulse 99 96 Oximetry 09/12/19 09/12/19 09/12/19 04:42 04:47 04:52 Temperature Pulse Rate 99 H 102 H 99 H Respiratory Rate Blood Pressure Blood Pressure [Right] O2 Sat by Pulse 97 97 97 Oximetry 09/12/19 09/12/19 09/12/19 04:57 05:02 05:07 Temperature Pulse Rate 98 H 98 H 99 H Respiratory Rate Blood Pressure Blood Pressure [Right] O2 Sat by Pulse 97 97 97 Oximetry 09/12/19 09/12/19 09/12/19 05:12 05:17 05:20 Temperature Pulse Rate 99 H 109 H 105 H Respiratory Rate Blood Pressure 145/83 Blood Pressure [Right] O2 Sat by Pulse 97 99 Oximetry 09/12/19 09/12/19 09/12/19 05:22 05:27 05:28 Temperature Pulse Rate 108 H 106 H 72 Respiratory Rate Blood Pressure Blood Pressure [Right] O2 Sat by Pulse 98 97 93 Oximetry 09/12/19 09/12/19 09/12/19 05:32 05:37 05:42 Temperature Pulse Rate 113 H 97 H 106 H Respiratory Rate Blood Pressure Blood Pressure [Right] O2 Sat by Pulse 98 98 98 Oximetry 09/12/19 09/12/19 09/12/19 05:46 05:47 05:52 Temperature Pulse Rate 61 105 H 98 H Respiratory Rate Blood Pressure Blood Pressure [Right] O2 Sat by Pulse 91 98 98 Oximetry 09/12/19 09/12/19 09/12/19 05:55 05:57 06:02 Temperature Pulse Rate 55 L 107 H 102 H Respiratory Rate Blood Pressure Blood Pressure [Right] O2 Sat by Pulse 91 98 98 Oximetry 09/12/19 09/12/19 09/12/19 06:04 06:07 06:12 Temperature Pulse Rate 98 H 111 H 106 H Respiratory Rate Blood Pressure Blood Pressure [Right] O2 Sat by Pulse 94 97 99 Oximetry 09/12/19 09/12/19 09/12/19 06:17 06:20 06:22 Temperature Pulse Rate 104 H 105 H 101 H Respiratory Rate Blood Pressure 133/74 Blood Pressure [Right] O2 Sat by Pulse 96 99 Oximetry 09/12/19 09/12/19 09/12/19 06:27 06:32 06:37 Temperature Pulse Rate 99 H 99 H 101 H Respiratory Rate Blood Pressure Blood Pressure [Right] O2 Sat by Pulse 98 98 98 Oximetry 09/12/19 09/12/19 09/12/19 06:42 06:47 06:51 Temperature Pulse Rate 94 H 105 H 93 H Respiratory Rate Blood Pressure 121/62 Blood Pressure [Right] O2 Sat by Pulse 99 99 Oximetry 09/12/19 09/12/19 09/12/19 06:52 06:53 06:57 Temperature Pulse Rate 100 H 102 H 113 H Respiratory Rate Blood Pressure 114/62 119/68 Blood Pressure [Right] O2 Sat by Pulse 98 98 Oximetry 09/12/19 09/12/19 09/12/19 07:00 07:02 07:06 Temperature Pulse Rate 112 H 114 H 114 H Respiratory Rate Blood Pressure 110/58 106/57 103/57 Blood Pressure [Right] O2 Sat by Pulse 97 Oximetry 09/12/19 09/12/19 09/12/19 07:07 07:08 07:12 Temperature Pulse Rate 114 H 114 H 107 H Respiratory Rate Blood Pressure 110/58 115/60 Blood Pressure [Right] O2 Sat by Pulse 97 99 Oximetry 09/12/19 09/12/19 09/12/19 07:15 07:16 07:17 Temperature 97.7 F Pulse Rate 113 H 112 H 94 H Respiratory 19 Rate Blood Pressure 108/56 112/58 Blood Pressure 102/57 [Right] O2 Sat by Pulse 98 Oximetry 09/12/19 09/12/19 09/12/19 07:19 07:21 07:22 Temperature Pulse Rate 110 H 110 H 113 H Respiratory Rate Blood Pressure 102/57 102/56 Blood Pressure [Right] O2 Sat by Pulse 96 Oximetry 09/12/19 09/12/19 07:24 07:27 Temperature Pulse Rate 110 H 106 H Respiratory Rate Blood Pressure 97/55 Blood Pressure [Right] O2 Sat by Pulse 94 96 Oximetry - Exam Breasts: normal Cardiovascular: Regular rate Lungs: Clear to auscultation, Normal air movement Abdomen: Present: normal appearance, soft Vulva: both: normal (clear amniotic fluid noted) Uterus: Present: normal FHR: category 1 Uterine Contraction Monitor Mode: External Cervical Dilatation: 4 Cervical Effacement Percentage: 80 station: -2 Uterine Contraction Frequency (min): 2-4 Uterine Contraction Duration: 60 Uterine Contraction Pattern: Regular Uterine Tone Measurement Phase: Contraction Uterine Contraction Intensity: Moderate Extremities: normal Deep Tendon Reflex Grade: Normal +2 - Labs Labs: Abnormal Labs 09/11/19 09/11/19 10:50 17:00 WBC 12.7 H POC Glucose 69 L Laboratory Results - last 24 hr 09/11/19 09/11/19 09/11/19 10:50 10:50 10:50 WBC 12.7 H RBC 3.83 Hgb 10.8 Hct 32.7 MCV 85 MCH 28 MCHC 33 RDW 13.7 Plt Count 218 POC Glucose Hemoglobin A1c 5.5 Syphilis IgG Antibody Blood Type O POSITIVE Antibody Screen Negative 09/11/19 09/11/19 09/11/19 10:50 11:53 17:00 WBC RBC Hgb Hct MCV MCH MCHC RDW Plt Count POC Glucose 100 69 L Hemoglobin A1c Syphilis IgG Antibody Non-reactive Blood Type Antibody Screen 09/11/19 09/11/19 09/12/19 18:13 23:30 06:15 WBC RBC Hgb Hct MCV MCH MCHC RDW Plt Count POC Glucose 72 76 85 Hemoglobin A1c Syphilis IgG Antibody Blood Type Antibody Screen
--- NOTE | 2019-09-12 12:31 | Progress Note ---
Assessment and Plan Anterior lip; able to reduce easily. pt with dense epidural, unable to push effectively. Will turn off epidural per patient request and allow to labor down. Dr. Kate updated. - Patient Problems (1) Insulin controlled gestational diabetes mellitus (GDM) in third trimester Current Visit: Yes Status: Acute (2) 39 weeks gestation of Current Visit: Yes Status: Acute Subjective - Subjective Date of service: 09/12/19 Principal diagnosis: IUP @ 39+6wks: IOL for GDM, insulin dependent Patient reports: no new complaints (comfortable with epidural) Objective - Vital Signs Vital Signs: Vital Signs - 12hr 09/12/19 09/12/19 09/12/19 00:29 00:32 00:34 Temperature Pulse Rate 99 H 82 101 H Respiratory Rate Blood Pressure Blood Pressure [Right] O2 Sat by Pulse 99 91 98 Oximetry 09/12/19 09/12/19 09/12/19 00:38 00:39 00:44 Temperature Pulse Rate 98 H 101 H Respiratory 18 Rate Blood Pressure Blood Pressure [Right] O2 Sat by Pulse 98 98 Oximetry 09/12/19 09/12/19 09/12/19 00:49 00:54 00:59 Temperature Pulse Rate 102 H 100 H 101 H Respiratory Rate Blood Pressure Blood Pressure [Right] O2 Sat by Pulse 98 98 96 Oximetry 09/12/19 09/12/19 09/12/19 01:04 01:09 01:14 Temperature Pulse Rate 99 H 101 H 95 H Respiratory Rate Blood Pressure Blood Pressure [Right] O2 Sat by Pulse 98 97 97 Oximetry 09/12/19 09/12/19 09/12/19 01:19 01:24 01:29 Temperature Pulse Rate 98 H 99 H 98 H Respiratory Rate Blood Pressure 112/60 Blood Pressure [Right] O2 Sat by Pulse 97 98 96 Oximetry 09/12/19 09/12/19 09/12/19 01:34 01:39 01:44 Temperature Pulse Rate 97 H 98 H 95 H Respiratory Rate Blood Pressure Blood Pressure [Right] O2 Sat by Pulse 98 98 97 Oximetry 09/12/19 09/12/19 09/12/19 01:49 01:54 01:59 Temperature Pulse Rate 103 H 97 H 107 H Respiratory Rate Blood Pressure Blood Pressure [Right] O2 Sat by Pulse 97 95 98 Oximetry 09/12/19 09/12/19 09/12/19 02:04 02:09 02:14 Temperature Pulse Rate 103 H 98 H 100 H Respiratory Rate Blood Pressure Blood Pressure [Right] O2 Sat by Pulse 98 99 99 Oximetry 09/12/19 09/12/19 09/12/19 02:19 02:24 02:29 Temperature Pulse Rate 98 H 99 H 95 H Respiratory Rate Blood Pressure 122/74 Blood Pressure [Right] O2 Sat by Pulse 97 97 97 Oximetry 09/12/19 09/12/19 09/12/19 02:34 02:39 02:44 Temperature Pulse Rate 96 H 98 H 98 H Respiratory Rate Blood Pressure Blood Pressure [Right] O2 Sat by Pulse 98 97 97 Oximetry 09/12/19 09/12/19 09/12/19 02:49 02:54 02:59 Temperature Pulse Rate 101 H 98 H 97 H Respiratory Rate Blood Pressure Blood Pressure [Right] O2 Sat by Pulse 98 97 97 Oximetry 09/12/19 09/12/19 09/12/19 03:04 03:09 03:14 Temperature Pulse Rate 99 H 101 H 100 H Respiratory Rate Blood Pressure Blood Pressure [Right] O2 Sat by Pulse 97 97 98 Oximetry 09/12/19 09/12/19 09/12/19 03:19 03:22 03:24 Temperature Pulse Rate 106 H 80 103 H Respiratory Rate Blood Pressure 121/74 Blood Pressure [Right] O2 Sat by Pulse 98 84 98 Oximetry 09/12/19 09/12/19 09/12/19 03:29 03:32 03:34 Temperature Pulse Rate 95 H 67 109 H Respiratory Rate Blood Pressure Blood Pressure [Right] O2 Sat by Pulse 99 82 L 99 Oximetry 09/12/19 09/12/19 09/12/19 03:39 03:44 03:49 Temperature Pulse Rate 115 H 98 H 110 H Respiratory Rate Blood Pressure Blood Pressure [Right] O2 Sat by Pulse 98 99 97 Oximetry 09/12/19 09/12/19 09/12/19 03:54 03:59 04:04 Temperature Pulse Rate 100 H 104 H 105 H Respiratory Rate Blood Pressure Blood Pressure [Right] O2 Sat by Pulse 98 99 98 Oximetry 09/12/19 09/12/19 09/12/19 04:05 04:09 04:14 Temperature Pulse Rate 97 H 107 H 97 H Respiratory Rate Blood Pressure Blood Pressure [Right] O2 Sat by Pulse 94 98 97 Oximetry 09/12/19 09/12/19 09/12/19 04:19 04:27 04:32 Temperature Pulse Rate 103 H 109 H 110 H Respiratory Rate Blood Pressure 121/78 Blood Pressure [Right] O2 Sat by Pulse 98 98 99 Oximetry 09/12/19 09/12/19 09/12/19 04:35 04:37 04:42 Temperature Pulse Rate 103 H 99 H Respiratory 18 Rate Blood Pressure Blood Pressure [Right] O2 Sat by Pulse 96 97 Oximetry 09/12/19 09/12/19 09/12/19 04:47 04:52 04:57 Temperature Pulse Rate 102 H 99 H 98 H Respiratory Rate Blood Pressure Blood Pressure [Right] O2 Sat by Pulse 97 97 97 Oximetry 09/12/19 09/12/19 09/12/19 05:02 05:07 05:12 Temperature Pulse Rate 98 H 99 H 99 H Respiratory Rate Blood Pressure Blood Pressure [Right] O2 Sat by Pulse 97 97 97 Oximetry 09/12/19 09/12/19 09/12/19 05:17 05:20 05:22 Temperature Pulse Rate 109 H 105 H 108 H Respiratory Rate Blood Pressure 145/83 Blood Pressure [Right] O2 Sat by Pulse 99 98 Oximetry 09/12/19 09/12/19 09/12/19 05:27 05:28 05:32 Temperature Pulse Rate 106 H 72 113 H Respiratory Rate Blood Pressure Blood Pressure [Right] O2 Sat by Pulse 97 93 98 Oximetry 09/12/19 09/12/19 09/12/19 05:37 05:42 05:46 Temperature Pulse Rate 97 H 106 H 61 Respiratory Rate Blood Pressure Blood Pressure [Right] O2 Sat by Pulse 98 98 91 Oximetry 09/12/19 09/12/19 09/12/19 05:47 05:52 05:55 Temperature Pulse Rate 105 H 98 H 55 L Respiratory Rate Blood Pressure Blood Pressure [Right] O2 Sat by Pulse 98 98 91 Oximetry 09/12/19 09/12/19 09/12/19 05:57 06:02 06:04 Temperature Pulse Rate 107 H 102 H 98 H Respiratory Rate Blood Pressure Blood Pressure [Right] O2 Sat by Pulse 98 98 94 Oximetry 09/12/19 09/12/19 09/12/19 06:07 06:12 06:17 Temperature Pulse Rate 111 H 106 H 104 H Respiratory Rate Blood Pressure Blood Pressure [Right] O2 Sat by Pulse 97 99 96 Oximetry 09/12/19 09/12/19 09/12/19 06:20 06:22 06:27 Temperature Pulse Rate 105 H 101 H 99 H Respiratory Rate Blood Pressure 133/74 Blood Pressure [Right] O2 Sat by Pulse 99 98 Oximetry 09/12/19 09/12/19 09/12/19 06:32 06:37 06:42 Temperature Pulse Rate 99 H 101 H 94 H Respiratory Rate Blood Pressure Blood Pressure [Right] O2 Sat by Pulse 98 98 99 Oximetry 09/12/19 09/12/19 09/12/19 06:47 06:51 06:52 Temperature Pulse Rate 105 H 93 H 100 H Respiratory Rate Blood Pressure 121/62 Blood Pressure [Right] O2 Sat by Pulse 99 98 Oximetry 09/12/19 09/12/19 09/12/19 06:53 06:57 07:00 Temperature Pulse Rate 102 H 113 H 112 H Respiratory Rate Blood Pressure 114/62 119/68 110/58 Blood Pressure [Right] O2 Sat by Pulse 98 Oximetry 09/12/19 09/12/19 09/12/19 07:02 07:06 07:07 Temperature Pulse Rate 114 H 114 H 114 H Respiratory Rate Blood Pressure 106/57 103/57 Blood Pressure [Right] O2 Sat by Pulse 97 97 Oximetry 09/12/19 09/12/19 09/12/19 07:08 07:12 07:15 Temperature Pulse Rate 114 H 107 H 113 H Respiratory Rate Blood Pressure 110/58 115/60 108/56 Blood Pressure [Right] O2 Sat by Pulse 99 Oximetry 09/12/19 09/12/19 09/12/19 07:16 07:17 07:19 Temperature 97.7 F Pulse Rate 112 H 94 H 110 H Respiratory 19 Rate Blood Pressure 112/58 102/57 Blood Pressure 102/57 [Right] O2 Sat by Pulse 98 Oximetry 09/12/19 09/12/19 09/12/19 07:21 07:22 07:24 Temperature Pulse Rate 110 H 113 H 110 H Respiratory Rate Blood Pressure 102/56 97/55 Blood Pressure [Right] O2 Sat by Pulse 96 94 Oximetry 09/12/19 09/12/19 09/12/19 07:27 07:32 07:37 Temperature Pulse Rate 106 H 118 H 101 H Respiratory Rate Blood Pressure Blood Pressure [Right] O2 Sat by Pulse 96 98 98 Oximetry 09/12/19 09/12/19 09/12/19 07:39 07:42 07:47 Temperature Pulse Rate 113 H 109 H 107 H Respiratory Rate Blood Pressure 110/56 Blood Pressure [Right] O2 Sat by Pulse 98 98 Oximetry 09/12/19 09/12/19 09/12/19 07:52 07:55 07:57 Temperature Pulse Rate 106 H 102 H 105 H Respiratory Rate Blood Pressure 102/59 Blood Pressure [Right] O2 Sat by Pulse 97 98 Oximetry 09/12/19 09/12/19 09/12/19 08:02 08:07 08:09 Temperature Pulse Rate 94 H 96 H 96 H Respiratory Rate Blood Pressure 98/54 Blood Pressure [Right] O2 Sat by Pulse 98 98 Oximetry 09/12/19 09/12/19 09/12/19 08:12 08:17 08:22 Temperature Pulse Rate 102 H 104 H 97 H Respiratory Rate Blood Pressure Blood Pressure [Right] O2 Sat by Pulse 97 97 97 Oximetry 09/12/19 09/12/19 09/12/19 08:24 08:27 08:32 Temperature Pulse Rate 105 H 99 H 85 Respiratory Rate Blood Pressure 96/54 Blood Pressure [Right] O2 Sat by Pulse 97 97 Oximetry 09/12/19 09/12/19 09/12/19 08:37 08:41 08:42 Temperature Pulse Rate 108 H 94 H 106 H Respiratory Rate Blood Pressure 105/58 Blood Pressure [Right] O2 Sat by Pulse 99 98 Oximetry 09/12/19 09/12/19 09/12/19 08:47 08:51 08:52 Temperature Pulse Rate 108 H 98 H 86 Respiratory Rate Blood Pressure Blood Pressure [Right] O2 Sat by Pulse 97 94 98 Oximetry 09/12/19 09/12/19 09/12/19 08:54 08:56 08:57 Temperature 98.6 F Pulse Rate 87 93 H Respiratory 19 Rate Blood Pressure 104/53 Blood Pressure [Right] O2 Sat by Pulse 100 Oximetry 09/12/19 09/12/19 09/12/19 09:02 09:07 09:10 Temperature Pulse Rate 87 77 75 Respiratory Rate Blood Pressure 96/54 Blood Pressure [Right] O2 Sat by Pulse 100 100 Oximetry 09/12/19 09/12/19 09/12/19 09:12 09:17 09:22 Temperature Pulse Rate 88 82 75 Respiratory Rate Blood Pressure Blood Pressure [Right] O2 Sat by Pulse 99 99 100 Oximetry 09/12/19 09/12/19 09/12/19 09:24 09:27 09:32 Temperature Pulse Rate 78 76 72 Respiratory Rate Blood Pressure 94/50 Blood Pressure [Right] O2 Sat by Pulse 100 100 Oximetry 09/12/19 09/12/19 09/12/19 09:37 09:41 09:42 Temperature Pulse Rate 89 86 86 Respiratory Rate Blood Pressure 79/42 Blood Pressure [Right] O2 Sat by Pulse 96 96 Oximetry 09/12/19 09/12/19 09/12/19 09:47 09:52 09:56 Temperature Pulse Rate 90 89 99 H Respiratory Rate Blood Pressure 80/42 Blood Pressure [Right] O2 Sat by Pulse 95 97 Oximetry 09/12/19 09/12/19 09/12/19 09:57 10:00 10:02 Temperature Pulse Rate 83 85 94 H Respiratory Rate Blood Pressure 85/49 Blood Pressure [Right] O2 Sat by Pulse 95 97 Oximetry 09/12/19 09/12/19 09/12/19 10:07 10:09 10:12 Temperature Pulse Rate 117 H 101 H 109 H Respiratory Rate Blood Pressure 106/59 Blood Pressure [Right] O2 Sat by Pulse 97 97 Oximetry 09/12/19 09/12/19 09/12/19 10:14 10:17 10:22 Temperature Pulse Rate 111 H 109 H 109 H Respiratory Rate Blood Pressure Blood Pressure [Right] O2 Sat by Pulse 86 98 95 Oximetry 09/12/19 09/12/19 09/12/19 10:24 10:27 10:32 Temperature Pulse Rate 107 H 106 H 104 H Respiratory Rate Blood Pressure 96/55 Blood Pressure [Right] O2 Sat by Pulse 96 96 Oximetry 09/12/19 09/12/19 09/12/19 10:37 10:41 10:42 Temperature Pulse Rate 101 H 108 H 111 H Respiratory Rate Blood Pressure 104/51 Blood Pressure [Right] O2 Sat by Pulse 96 98 Oximetry 09/12/19 09/12/19 09/12/19 10:47 10:52 10:55 Temperature Pulse Rate 109 H 112 H 107 H Respiratory Rate Blood Pressure 103/56 Blood Pressure [Right] O2 Sat by Pulse 98 98 Oximetry 09/12/19 09/12/1909/12/19 10:57 11:02 11:05 Temperature Pulse Rate 101 H 109 H 113 H Respiratory Rate Blood Pressure Blood Pressure [Right] O2 Sat by Pulse 98 98 94 Oximetry 09/12/19 09/12/19 09/12/19 11:07 11:10 11:12 Temperature Pulse Rate 112 H 108 H 112 H Respiratory Rate Blood Pressure 104/58 Blood Pressure [Right] O2 Sat by Pulse 98 95 Oximetry 09/12/19 09/12/19 09/12/19 11:17 11:22 11:24 Temperature Pulse Rate 108 H 115 H 110 H Respiratory Rate Blood Pressure 104/58 Blood Pressure [Right] O2 Sat by Pulse 97 97 Oximetry 09/12/19 09/12/19 09/12/19 11:27 11:32 11:37 Temperature Pulse Rate 109 H 104 H 107 H Respiratory Rate Blood Pressure Blood Pressure [Right] O2 Sat by Pulse 99 98 98 Oximetry 09/12/19 09/12/19 09/12/19 11:41 11:42 11:44 Temperature Pulse Rate 113 H 103 H 123 H Respiratory Rate Blood Pressure 117/57 Blood Pressure [Right] O2 Sat by Pulse 97 93 Oximetry 09/12/19 09/12/19 09/12/19 11:47 11:52 11:56 Temperature Pulse Rate 101 H 117 H 114 H Respiratory Rate Blood Pressure 90/52 Blood Pressure [Right] O2 Sat by Pulse 97 97 Oximetry 09/12/19 09/12/19 09/12/19 11:57 12:02 12:04 Temperature Pulse Rate 118 H 104 H 92 H Respiratory Rate Blood Pressure Blood Pressure [Right] O2 Sat by Pulse 97 97 94 Oximetry 09/12/19 09/12/19 09/12/19 12:07 12:10 12:12 Temperature Pulse Rate 108 H 137 H 114 H Respiratory Rate Blood Pressure 168/95 Blood Pressure [Right] O2 Sat by Pulse 97 98 Oximetry 09/12/19 09/12/19 09/12/19 12:15 12:16 12:17 Temperature Pulse Rate 104 H 68 108 H Respiratory Rate Blood Pressure 100/51 Blood Pressure [Right] O2 Sat by Pulse 92 98 Oximetry 09/12/19 09/12/19 12:22 12:25 Temperature Pulse Rate 99 H 98 H Respiratory Rate Blood Pressure 82/43 Blood Pressure [Right] O2 Sat by Pulse 98 94 Oximetry - Exam Breasts: normal Cardiovascular: Regular rate Lungs: Normal air movement Abdomen: Present: normal appearance Vulva: both: normal Uterus: Present: normal, fundal height above umbilicus Cervical Dilatation: 9.5 Cervical Effacement Percentage: 100 station: -1 Uterine Contraction Frequency (min): 3-6 Uterine Contraction Duration: 120 Uterine Contraction Pattern: Regular Uterine Tone Measurement Phase: Contraction Uterine Contraction Intensity: Moderate Extremities: normal Deep Tendon Reflex Grade: Normal +2 - Labs Labs: Abnormal Labs 09/11/19 09/11/19 10:50 17:00 WBC 12.7 H POC Glucose 69 L Laboratory Results - last 24 hr 09/11/19 09/11/19 09/11/19 17:00 18:13 23:30 POC Glucose 69 L 72 76 09/12/19 06:15 POC Glucose 85
--- NOTE | 2019-09-12 14:35 | Progress Note ---
Assessment and Plan patient is unable to push past 0 station. Caput noted. Patient now states EFW 9lbs at [facility] last week. (Last baby 3.4KG, ~7.4lbs) FHT with late decels. Pit off. Dr. Kate notified. c/s called. Pre-op orders in EMR. Anesthesia and CN made aware. - Patient Problems (1) Insulin controlled gestational diabetes mellitus (GDM) in third trimester Current Visit: Yes Status: Acute Plan to address problem: continue current management (2) 39 weeks gestation of Current Visit: Yes Status: Acute Subjective - Subjective Date of service: 09/12/19 Principal diagnosis: IUP @ 39+6wks: IOL for GDM, insulin dependent Patient reports: no new complaints Objective - Vital Signs Vital Signs: Vital Signs - 12hr 09/12/19 09/12/19 09/12/19 02:34 02:39 02:44 Temperature Pulse Rate 96 H 98 H 98 H Respiratory Rate Blood Pressure Blood Pressure [Right] O2 Sat by Pulse 98 97 97 Oximetry 09/12/19 09/12/19 09/12/19 02:49 02:54 02:59 Temperature Pulse Rate 101 H 98 H 97 H Respiratory Rate Blood Pressure Blood Pressure [Right] O2 Sat by Pulse 98 97 97 Oximetry 09/12/19 09/12/19 09/12/19 03:04 03:09 03:14 Temperature Pulse Rate 99 H 101 H 100 H Respiratory Rate Blood Pressure Blood Pressure [Right] O2 Sat by Pulse 97 97 98 Oximetry 09/12/19 09/12/19 09/12/19 03:19 03:22 03:24 Temperature Pulse Rate 106 H 80 103 H Respiratory Rate Blood Pressure 121/74 Blood Pressure [Right] O2 Sat by Pulse 98 84 98 Oximetry 09/12/19 09/12/19 09/12/19 03:29 03:32 03:34 Temperature Pulse Rate 95 H 67 109 H Respiratory Rate Blood Pressure Blood Pressure [Right] O2 Sat by Pulse 99 82 L 99 Oximetry 09/12/19 09/12/19 09/12/19 03:39 03:44 03:49 Temperature Pulse Rate 115 H 98 H 110 H Respiratory Rate Blood Pressure Blood Pressure [Right] O2 Sat by Pulse 98 99 97 Oximetry 09/12/19 09/12/19 09/12/19 03:54 03:59 04:04 Temperature Pulse Rate 100 H 104 H 105 H Respiratory Rate Blood Pressure Blood Pressure [Right] O2 Sat by Pulse 98 99 98 Oximetry 09/12/19 09/12/19 09/12/19 04:05 04:09 04:14 Temperature Pulse Rate 97 H 107 H 97 H Respiratory Rate Blood Pressure Blood Pressure [Right] O2 Sat by Pulse 94 98 97 Oximetry 09/12/19 09/12/19 09/12/19 04:19 04:27 04:32 Temperature Pulse Rate 103 H 109 H 110 H Respiratory Rate Blood Pressure 121/78 Blood Pressure [Right] O2 Sat by Pulse 98 98 99 Oximetry 09/12/19 09/12/19 09/12/19 04:35 04:37 04:42 Temperature Pulse Rate 103 H 99 H Respiratory 18 Rate Blood Pressure Blood Pressure [Right] O2 Sat by Pulse 96 97 Oximetry 09/12/19 09/12/19 09/12/19 04:47 04:52 04:57 Temperature Pulse Rate 102 H 99 H 98 H Respiratory Rate Blood Pressure Blood Pressure [Right] O2 Sat by Pulse 97 97 97 Oximetry 09/12/19 09/12/19 09/12/19 05:02 05:07 05:12 Temperature Pulse Rate 98 H 99 H 99 H Respiratory Rate Blood Pressure Blood Pressure [Right] O2 Sat by Pulse 97 97 97 Oximetry 09/12/19 09/12/19 09/12/19 05:17 05:20 05:22 Temperature Pulse Rate 109 H 105 H 108 H Respiratory Rate Blood Pressure 145/83 Blood Pressure [Right] O2 Sat by Pulse 99 98 Oximetry 09/12/19 09/12/19 09/12/19 05:27 05:28 05:32 Temperature Pulse Rate 106 H 72 113 H Respiratory Rate Blood Pressure Blood Pressure [Right] O2 Sat by Pulse 97 93 98 Oximetry 09/12/19 09/12/19 09/12/19 05:37 05:42 05:46 Temperature Pulse Rate 97 H 106 H 61 Respiratory Rate Blood Pressure Blood Pressure [Right] O2 Sat by Pulse 98 98 91 Oximetry 09/12/19 09/12/19 09/12/19 05:47 05:52 05:55 Temperature Pulse Rate 105 H 98 H 55 L Respiratory Rate Blood Pressure Blood Pressure [Right] O2 Sat by Pulse 98 98 91 Oximetry 09/12/19 09/12/19 09/12/19 05:57 06:02 06:04 Temperature Pulse Rate 107 H 102 H 98 H Respiratory Rate Blood Pressure Blood Pressure [Right] O2 Sat by Pulse 98 98 94 Oximetry 09/12/19 09/12/19 09/12/19 06:07 06:12 06:17 Temperature Pulse Rate 111 H 106 H 104 H Respiratory Rate Blood Pressure Blood Pressure [Right] O2 Sat by Pulse 97 99 96 Oximetry 09/12/19 09/12/19 09/12/19 06:20 06:22 06:27 Temperature Pulse Rate 105 H 101 H 99 H Respiratory Rate Blood Pressure 133/74 Blood Pressure [Right] O2 Sat by Pulse 99 98 Oximetry 09/12/19 09/12/19 09/12/19 06:32 06:37 06:42 Temperature Pulse Rate 99 H 101 H 94 H Respiratory Rate Blood Pressure Blood Pressure [Right] O2 Sat by Pulse 98 98 99 Oximetry 09/12/19 09/12/19 09/12/19 06:47 06:51 06:52 Temperature Pulse Rate 105 H 93 H 100 H Respiratory Rate Blood Pressure 121/62 Blood Pressure [Right] O2 Sat by Pulse 99 98 Oximetry 09/12/19 09/12/19 09/12/19 06:53 06:57 07:00 Temperature Pulse Rate 102 H 113 H 112 H Respiratory Rate Blood Pressure 114/62 119/68 110/58 Blood Pressure [Right] O2 Sat by Pulse 98 Oximetry 09/12/19 09/12/19 09/12/19 07:02 07:06 07:07 Temperature Pulse Rate 114 H 114 H 114 H Respiratory Rate Blood Pressure 106/57 103/57 Blood Pressure [Right] O2 Sat by Pulse 97 97 Oximetry 09/12/19 09/12/19 09/12/19 07:08 07:12 07:15 Temperature Pulse Rate 114 H 107 H 113 H Respiratory Rate Blood Pressure 110/58 115/60 108/56 Blood Pressure [Right] O2 Sat by Pulse 99 Oximetry 09/12/19 09/12/19 09/12/19 07:16 07:17 07:19 Temperature 97.7 F Pulse Rate 112 H 94 H 110 H Respiratory 19 Rate Blood Pressure 112/58 102/57 Blood Pressure 102/57 [Right] O2 Sat by Pulse 98 Oximetry 09/12/19 09/12/19 09/12/19 07:21 07:22 07:24 Temperature Pulse Rate 110 H 113 H 110 H Respiratory Rate Blood Pressure 102/56 97/55 Blood Pressure [Right] O2 Sat by Pulse 96 94 Oximetry 09/12/19 09/12/19 09/12/19 07:27 07:32 07:37 Temperature Pulse Rate 106 H 118 H 101 H Respiratory Rate Blood Pressure Blood Pressure [Right] O2 Sat by Pulse 96 98 98 Oximetry 09/12/19 09/12/19 09/12/19 07:39 07:42 07:47 Temperature Pulse Rate 113 H 109 H 107 H Respiratory Rate Blood Pressure 110/56 Blood Pressure [Right] O2 Sat by Pulse 98 98 Oximetry 09/12/19 09/12/19 09/12/19 07:52 07:55 07:57 Temperature Pulse Rate 106 H 102 H 105 H Respiratory Rate Blood Pressure 102/59 Blood Pressure [Right] O2 Sat by Pulse 97 98 Oximetry 09/12/19 09/12/19 09/12/19 08:02 08:07 08:09 Temperature Pulse Rate 94 H 96 H 96 H Respiratory Rate Blood Pressure 98/54 Blood Pressure [Right] O2 Sat by Pulse 98 98 Oximetry 09/12/19 09/12/19 09/12/19 08:12 08:17 08:22 Temperature Pulse Rate 102 H 104 H 97 H Respiratory Rate Blood Pressure Blood Pressure [Right] O2 Sat by Pulse 97 97 97 Oximetry 09/12/19 09/12/19 09/12/19 08:24 08:27 08:32 Temperature Pulse Rate 105 H 99 H 85 Respiratory Rate Blood Pressure 96/54 Blood Pressure [Right] O2 Sat by Pulse 97 97 Oximetry 09/12/19 09/12/19 09/12/19 08:37 08:41 08:42 Temperature Pulse Rate 108 H 94 H 106 H Respiratory Rate Blood Pressure 105/58 Blood Pressure [Right] O2 Sat by Pulse 99 98 Oximetry 09/12/19 09/12/19 09/12/19 08:47 08:51 08:52 Temperature Pulse Rate 108 H 98 H 86 Respiratory Rate Blood Pressure Blood Pressure [Right] O2 Sat by Pulse 97 94 98 Oximetry 09/12/19 09/12/19 09/12/19 08:54 08:56 08:57 Temperature 98.6 F Pulse Rate 87 93 H Respiratory 19 Rate Blood Pressure 104/53 Blood Pressure [Right] O2 Sat by Pulse 100 Oximetry 09/12/19 09/12/19 09/12/19 09:02 09:07 09:10 Temperature Pulse Rate 87 77 75 Respiratory Rate Blood Pressure 96/54 Blood Pressure [Right] O2 Sat by Pulse 100 100 Oximetry 09/12/19 09/12/19 09/12/19 09:12 09:17 09:22 Temperature Pulse Rate 88 82 75 Respiratory Rate Blood Pressure Blood Pressure [Right] O2 Sat by Pulse 99 99 100 Oximetry 09/12/19 09/12/19 09/12/19 09:24 09:27 09:32 Temperature Pulse Rate 78 76 72 Respiratory Rate Blood Pressure 94/50 Blood Pressure [Right] O2 Sat by Pulse 100 100 Oximetry 09/12/19 09/12/19 09/12/19 09:37 09:41 09:42 Temperature Pulse Rate 89 86 86 Respiratory Rate Blood Pressure 79/42 Blood Pressure [Right] O2 Sat by Pulse 96 96 Oximetry 09/12/19 09/12/19 09/12/19 09:47 09:52 09:56 Temperature Pulse Rate 90 89 99 H Respiratory Rate Blood Pressure 80/42 Blood Pressure [Right] O2 Sat by Pulse 95 97 Oximetry 09/12/19 09/12/19 09/12/19 09:57 10:00 10:02 Temperature Pulse Rate 83 85 94 H Respiratory Rate Blood Pressure 85/49 Blood Pressure [Right] O2 Sat by Pulse 95 97 Oximetry 09/12/19 09/12/19 09/12/19 10:07 10:09 10:12 Temperature Pulse Rate 117 H 101 H 109 H Respiratory Rate Blood Pressure 106/59 Blood Pressure [Right] O2 Sat by Pulse 97 97 Oximetry 09/12/19 09/12/19 09/12/19 10:14 10:17 10:22 Temperature Pulse Rate 111 H 109 H 109 H Respiratory Rate Blood Pressure Blood Pressure [Right] O2 Sat by Pulse 86 98 95 Oximetry 09/12/19 09/12/19 09/12/19 10:24 10:27 10:32 Temperature Pulse Rate 107 H 106 H 104 H Respiratory Rate Blood Pressure 96/55 Blood Pressure [Right] O2 Sat by Pulse 96 96 Oximetry 09/12/19 09/12/19 09/12/19 10:37 10:41 10:42 Temperature Pulse Rate 101 H 108 H 111 H Respiratory Rate Blood Pressure 104/51 Blood Pressure [Right] O2 Sat by Pulse 96 98 Oximetry 09/12/19 09/12/19 09/12/19 10:47 10:52 10:55 Temperature Pulse Rate 109 H 112 H 107 H Respiratory Rate Blood Pressure 103/56 Blood Pressure [Right] O2 Sat by Pulse 98 98 Oximetry 09/12/19 09/12/19 09/12/19 10:57 11:02 11:05 Temperature Pulse Rate 101 H 109 H 113 H Respiratory Rate Blood Pressure Blood Pressure [Right] O2 Sat by Pulse 98 98 94 Oximetry 09/12/19 09/12/19 09/12/19 11:07 11:10 11:12 Temperature Pulse Rate 112 H 108 H 112 H Respiratory Rate Blood Pressure 104/58 Blood Pressure [Right] O2 Sat by Pulse 98 95 Oximetry 09/12/19 09/12/19 09/12/19 11:17 11:22 11:24 Temperature Pulse Rate 108 H 115 H 110 H Respiratory Rate Blood Pressure 104/58 Blood Pressure [Right] O2 Sat by Pulse 97 97 Oximetry 09/12/19 09/12/19 09/12/19 11:27 11:32 11:37 Temperature Pulse Rate 109 H 104 H 107 H Respiratory Rate Blood Pressure Blood Pressure [Right] O2 Sat by Pulse 99 98 98 Oximetry 09/12/19 09/12/19 09/12/19 11:41 11:42 11:44 Temperature Pulse Rate 113 H 103 H 123 H Respiratory Rate Blood Pressure 117/57 Blood Pressure [Right] O2 Sat by Pulse 97 93 Oximetry 09/12/19 09/12/19 09/12/19 11:47 11:52 11:56 Temperature Pulse Rate 101 H 117 H 114 H Respiratory Rate Blood Pressure 90/52 Blood Pressure [Right] O2 Sat by Pulse 97 97 Oximetry 09/12/19 09/12/19 09/12/19 11:57 12:02 12:04 Temperature Pulse Rate 118 H 104 H 92 H Respiratory Rate Blood Pressure Blood Pressure [Right] O2 Sat by Pulse 97 97 94 Oximetry 09/12/19 09/12/19 09/12/19 12:07 12:10 12:12 Temperature Pulse Rate 108 H 137 H 114 H Respiratory Rate Blood Pressure 168/95 Blood Pressure [Right] O2 Sat by Pulse 97 98 Oximetry 09/12/19 09/12/1919 12:15 12:16 12:17 Temperature Pulse Rate 104 H 68 108 H Respiratory Rate Blood Pressure 100/51 Blood Pressure [Right] O2 Sat by Pulse 92 98 Oximetry 09/12/19 09/12/19 09/12/19 12:22 12:25 12:27 Temperature Pulse Rate 99 H 98 H 104 H Respiratory Rate Blood Pressure 82/43 Blood Pressure [Right] O2 Sat by Pulse 98 94 95 Oximetry 09/12/19 09/12/19 09/12/19 12:32 12:37 12:40 Temperature Pulse Rate 98 H 100 H 93 H Respiratory Rate Blood Pressure 88/48 Blood Pressure [Right] O2 Sat by Pulse 96 97 Oximetry 09/12/19 09/12/19 09/12/19 12:42 12:47 12:52 Temperature Pulse Rate 97 H 99 H 110 H Respiratory Rate Blood Pressure Blood Pressure [Right] O2 Sat by Pulse 96 96 96 Oximetry 09/12/19 09/12/19 09/12/19 12:55 12:57 13:02 Temperature Pulse Rate 96 H 110 H 93 H Respiratory Rate Blood Pressure 92/50 Blood Pressure [Right] O2 Sat by Pulse 97 97 Oximetry 09/12/19 09/12/19 09/12/19 13:07 13:09 13:12 Temperature Pulse Rate 104 H 118 H 114 H Respiratory Rate Blood Pressure 91/50 Blood Pressure [Right] O2 Sat by Pulse 99 99 Oximetry 09/12/19 09/12/19 09/12/19 13:16 13:17 13:22 Temperature Pulse Rate 110 H 123 H 111 H Respiratory Rate Blood Pressure Blood Pressure [Right] O2 Sat by Pulse 92 96 98 Oximetry 09/12/19 09/12/19 09/12/19 13:23 13:26 13:27 Temperature Pulse Rate 108 H 115 H 156 H Respiratory Rate Blood Pressure 119/58 Blood Pressure [Right] O2 Sat by Pulse 92 97 Oximetry 09/12/19 09/12/19 09/12/19 13:30 13:32 13:37 Temperature Pulse Rate 69 122 H 119 H Respiratory Rate Blood Pressure Blood Pressure [Right] O2 Sat by Pulse 70 L 98 98 Oximetry 09/12/19 09/12/19 09/12/19 13:40 13:42 13:47 Temperature Pulse Rate 118 H 131 H 122 H Respiratory Rate Blood Pressure 104/60 Blood Pressure [Right] O2 Sat by Pulse 98 99 Oximetry 09/12/19 09/12/19 09/12/19 13:52 13:56 13:57 Temperature Pulse Rate 116 H 117 H 122 H Respiratory Rate Blood Pressure 110/58 Blood Pressure [Right] O2 Sat by Pulse 98 97 Oximetry 09/12/19 09/12/19 09/12/19 14:02 14:06 14:09 Temperature Pulse Rate 120 H 59 L 125 H Respiratory Rate Blood Pressure 111/55 Blood Pressure [Right] O2 Sat by Pulse 97 93 Oximetry 09/12/19 14:25 Temperature Pulse Rate 120 H Respiratory Rate Blood Pressure 123/58 Blood Pressure [Right] O2 Sat by Pulse Oximetry - Exam Breasts: normal Cardiovascular: Regular rate Lungs: Clear to auscultation, Normal air movement Abdomen: Present: normal appearance, soft Vulva: both: normal Uterus: Present: normal FHR: auscultation normal, category 2 Uterine Contraction Monitor Mode: External Cervical Dilatation: 10 Cervical Effacement Percentage: 100 station: 0 Uterine Contraction Frequency (min): 2-4 Uterine Contraction Duration: 120 Uterine Contraction Pattern: Regular Uterine Tone Measurement Phase: Contraction Uterine Contraction Intensity: Strong/Firm Extremities: normal Deep Tendon Reflex Grade: Normal +2 - Labs Labs: Abnormal Labs 09/11/19 09/11/19 10:50 17:00 WBC 12.7 H POC Glucose 69 L Laboratory Results - last 24 hr 09/11/19 09/11/19 09/11/19 17:00 18:13 23:30 POC Glucose 69 L 72 76 09/12/19 06:15 POC Glucose 85
[2019-09-12] MEDS ORDERED: METOCLOPRAMIDE 10 MG/2 ML INJ IV ONE (14:42)
[2019-09-12] MEDS ORDERED: BICITRA ORAL LIQD 30ML PO ONE (14:42)
[2019-09-12] MEDS ORDERED: FAMOTIDINE 20 MG/2 ML INJ IV ONE (14:44)
[2019-09-12] MEDS ORDERED: PROMETHAZINE 25 MG TAB PO PRN (14:56)
[2019-09-12] MEDS ORDERED: ONDANSETRON 4 MG/2 ML INJ IV PRN (14:56)
[2019-09-12] MEDS ORDERED: PROMETHAZINE 25 MG RECT SUPP PR PRN (14:56)
[2019-09-12] MEDS ORDERED: HYDROmorphone 1 MG/1 ML INJ IV PRN (14:56)
[2019-09-12] MEDS ORDERED: NALOXONE 0.4 MG/1 ML INJ IV PRN ×2 (14:56→17:18)
--- NOTE | 2019-09-12 14:56 | Anesthesia Day of Surgery ---
Anesthesia Day of Surgery - Day of Surgery Patient Examined: Yes Patient H&P Reviewed: Yes Patient is NPO: Yes
[2019-09-12] MEDS ORDERED: ceFAZolin/Water 2 GM/20 ML 2 GM/20 ML SYRINGE IV NR (15:00)
[2019-09-12] MEDS ORDERED: OXYTOCIN 20 UNIT/1000ML DRIP 20 UNITS/1,000 ML BAG IV SCH ×2 (15:00→18:00)
[2019-09-12] MEDS ORDERED: LACTATED RINGERS 1,000 ML IV SCH (15:00)
[2019-09-12] MEDS ORDERED: BUPIVACAINE/PF (0.25%) 2.5 MG/ML 10 ML VIAL INFILTRATI ONE (15:02)
[2019-09-12] MEDS ORDERED: ONDANSETRON 4 MG/2 ML INJ ONE (15:27)
[2019-09-12] MEDS ORDERED: KETOROLAC 30 MG/1 ML INJ ONE (15:48)
[2019-09-12] MEDS ORDERED: OXYTOCIN 10 UNIT/1 ML INJ ONE (15:51)
[2019-09-12] MEDS ORDERED: HYDROmorphone 1 MG/1 ML INJ ONE (16:06)
--- NOTE | 2019-09-12 16:53 | Post Anesthesia Evaluation ---
- Post Anesthesia Evaluation Patient Participated: Yes Airway Patent: Yes Stable Respiratory Function: Yes Nausea/Vomiting: No Temp > 96.8F: Yes Pain Manageable: Yes Adequeate Hydration: Yes Anesthesia Complications: No Block Receding Appropriately: Yes Patient on Ventilator: No
[2019-09-12] MEDS: HYDROmorphone 1 MG/1 ML INJ IV PRN ×2 (17:05→18:38)
--- NOTE | 2019-09-12 17:08 | Operative Report ---
Operative Report Operative Report: Date of procedure: 09/12/2019 Pre-operative diagnosis: 38-6/7 weeks gestation Insulin-dependent gestational diabetes Advanced maternal age Failure to descend Post-operative diagnosis: Same plus hemorrhage Procedure name(s): Primary low transverse section via Pfannenstiel skin incision Surgeon: Dr. Kate Title Inspector: GENEVA Anesthesia: Epidural EBL: 1200 mL Urine output: 200 mL of nghia color urine out at end of the procedure it should be noted that prior to the procedure urine was nghia colored as well Fluids: 1 L Findings: Liveborn female infant weight 8 pounds 4.9 ounces Apgars of 8 and 9 at one and 5 minutes Extension of uterine incision on the left side into the cervix Was normal fallopian tubes and ovaries bilaterally Distended edematous bladder noted during the procedure. Indications: Patient was induced for insulin-dependent diabetes. Patient was in labor and progressed to approximately 10 cm and 0 station. With pushing patient was not able to have head descend beyond 0 station. Patient was also noted to have repetitive late decelerations. Decision at this time was made to proceed with primary section. Procedure: Patient was taking to the operating room. Patient was then prepped and draped in sterile fashion after anesthesia was found to be adequate. A low transverse skin incision was made with the scalpel and carried down to the underlying layer of fascia with the Bovie. The fascia was then incised in the midline and this incision was extended bilaterally with the Bovie. The superior aspect of the fascia was grasped with Miguel clamps tented upward and dissected off of the anterior rectus muscles with the scalpel. In similar fashion the inferior aspect of the fascia was grasped with Miguel clamps tented upward and dissected off of the anterior rectus muscles. The rectus muscles were then bluntly divided in the midline. The peritoneum was identified and entered into sharply. The bladder blade was placed. The bladder flap was created using the Metzenbaum scissors. The bladder blade was replaced. A lower transverse uterine incision was made with the scalpel and extended bilaterally with the bandage scissors. Entry into the uterus yielded clear amniotic fluid. The infant's head was then delivered atraumatically. The anterior shoulder and rest of infant delivered without difficulty. The umbilical cord was clamped x2. The cord was cut. The was then placed in sterile bassinet. The cord blood was collected. The placenta was manually extracted in its entirety. The uterus was exteriorized and cleared of all clots and debris. The uterine incision was closed using 0 Vicryl in a running locking fashion. There was a left extension of uterine incision into the uterine cervix. This was repaired in a series of [id number] and running locking sutures of 0 Vicryl. [id number] sutu res were used along the uterine incision to secure excellent hemostasis. The posterior cul-de-sac was copiously irrigated. The uterus was returned to the abdomen. The gutters were also irrigated. The anterior rectus muscles were reapproximated using 3-0 Vicryl. The anterior rectus fascia was reapproximated using 0 Vicryl in a running fashion. The subcuticular fat was reapproximated using 2-0 Vicryl in a running fashion. The skin was reapproximated with 4-0 Monocryl in a subcuticular stitch. The patient tolerated the procedure well. Sponge lap and needle counts were all correct x3. Patient was taken to the recovery room awake and in stable condition.
[2019-09-12] MEDS ORDERED: WITCH HAZEL/ GLYCERIN PAD TP PRN (17:18)
[2019-09-12] MEDS ORDERED: LANOLIN/ZINC/DIMETHICONE (LANSINOH) 7 GM TP PRN (17:18)
[2019-09-12] MEDS ORDERED: D5W/LACTATED RINGERS 1,000 ML IV SCH (18:00)
[2019-09-12] MEDS: KETOROLAC 30 MG/1 ML INJ IV PRN (19:55)
[2019-09-12] MEDS: ceFAZolin/NS 1 GM/50 ML 1 GM/50 ML BAG IV SCH (22:23)
[2019-09-13 00:05] LABS: Hematocrit 21.6 % (30.3-42.9); Hemoglobin 7.3 gm/dl (10.1-14.3)
[2019-09-13] MEDS: KETOROLAC 30 MG/1 ML INJ IV PRN (03:30)
[2019-09-13] MEDS ORDERED: HYDROcodone/ACETAMINOPHEN 5-325 MG TAB PO PRN (05:00)
[2019-09-13 05:17] LABS: Hematocrit 20.3 % (30.3-42.9); Hemoglobin 6.6 gm/dl (10.1-14.3)
[2019-09-13] MEDS ORDERED: TETANUS,DIPH,PERTUSS(ACELL) VACCINE 0.5 ML SYRINGE IM ONE (06:00)
[2019-09-13] MEDS: ceFAZolin/NS 1 GM/50 ML 1 GM/50 ML BAG IV SCH (06:22)
[2019-09-13] MEDS: INSULIN REGULAR, HUMAN 100 UNITS/1 ML SUB-Q SCH ×2 (06:38→12:00)
[2019-09-13] MEDS ORDERED: SODIUM CHLORIDE 0.9% 500 ML 500 ML IV ONE (06:40)
[2019-09-13] MEDS ORDERED: diphenhydrAMINE 50 MG/ML VIAL IV ONE (06:44)
--- NOTE | 2019-09-13 06:46 | Event Note ---
Date: 09/13/19 HH/H noted to be 6.6/20.3 will xfuse two units at this time. This drop is c/w EBL at time of c/s. Pt has been tachycardiac since admission even prior to the surgery. Only one uop recorded at 0650 this am since 1414 and was 65ml. Spoke with RN And she is not aware of what UOP was at time of assuming care of pt at 1900 on last night. She will speak with tech to see if other UOP have been recorded. Erin however had been removed at time of my conversation with RN this am.
[2019-09-13] MEDS ORDERED: SODIUM CHLORIDE 0.9% 250ML 250 ML ONE ×2 (09:44→12:24)
[2019-09-13] MEDS ORDERED: FERROUS SULFATE 325 MG TAB PO SCH (10:00)
[2019-09-13] MEDS: HYDROcodone/ACETAMINOPHEN 5-325 MG TAB PO PRN (13:10)
[2019-09-13] MEDS: SIMETHICONE 80 MG CHEW TAB PO PRN (13:11)
--- NOTE | 2019-09-13 14:23 | Progress Note ---
Assessment and Plan - Patient Problems (1) delivery delivered Current Visit: Yes Status: Acute Plan to address problem: Continue postop C/S pathway (2) Anemia Current Visit: Yes Status: Acute Qualifiers: Other causes of anemia: acute posthemorrhagic Plan to address problem: check H/H 2h post transfusion (3) AMA (advanced maternal age) multigravida 35+ Current Visit: Yes Status: Chronic (4) Hepatitis B Current Visit: Yes Status: Chronic (5) Insulin controlled gestational diabetes mellitus (GDM) in third trimester Current Visit: Yes Status: Acute Plan to address problem: BS stable Subjective - Subjective Date of service: 09/13/19 Principal diagnosis: POD#1 C/S, PPH, anemia Interval history: Resting in bed, receiving PRBC, no complaints, minimal bleeding Patient reports: appetite normal, no flatus Objective - Vital Signs Latest vital signs: Vital Signs Temp Pulse Resp BP BP Pulse Ox 09/13/19 14:00 98.8 F 122 H 18 116/70 97 09/13/19 13:30 98.7 F 113 H 20 122/74 97 09/13/19 13:10 20 09/13/19 13:00 98.5 F 118 H 20 113/69 96 09/13/19 12:27 98.6 F 104 H 20 111/68 96 09/13/19 12:26 97.4 F L 114 H 18 122/67 09/13/19 11:59 99 F 117 H 20 106/65 97 09/13/19 11:29 98.8 F 116 H 20 105/65 97 09/13/19 10:59 98.7 F 116 H 20 107/65 97 09/13/19 10:29 98.7 F 114 H 20 107/67 97 09/13/19 10:14 98.7 F 117 H 18 122/61 98 09/13/19 08:33 97.4 F L 121 H 18 113/70 09/13/19 05:07 98.9 F 126 H 20 113/65 96 09/13/19 01:18 98.5 F 121 H 20 117/62 96 09/12/19 19:01 98.4 F 110 H 20 98/59 97 09/12/19 18:38 16 09/12/19 17:45 97.7 F 99 H 24 99/65 96 09/12/19 17:42 101 H 15 97/65 97 09/12/19 17:30 97 H 22 103/62 09/12/19 17:15 109 H 14 108/63 99 09/12/19 17:00 110 H 22 104/68 99 09/12/19 16:55 108 H 20 110/68 99 09/12/19 16:50 116 H 16 11/58 100 09/12/19 16:45 97.6 F 112 H 16 113/68 100 09/12/19 14:55 116 H 117/57 09/12/19 14:40 113 H 112/53 09/12/19 14:25 120 H 123/58 Intake and Output 09/12/19 09/13/19 09/13/19 22:59 06:59 14:59 Intake Total 50 480 960 Output Total 200 1050 500 Balance -150 -570 460 Intake: IV 50 ANCEF/NS 1 GM/50 ML 1 gm 50 In 50 ml @ 100 mls/hr IV Q8H [facility] Rx#:[id number] Oral 480 960 Blood Product 0 Leukoreduced Red Blood 0 Cells Unit [id number] Leukoreduced Red Blood 0 Cells Unit [id number] Output: Urine 200 1050 500 Indwelling Catheter 1050 Uretheral (Khan) 200 Void 500 Other: Total, Intake Amount 240 480 Total, Output Amount 650 500 - Exam Breasts: Present: normal Cardiovascular: Present: Regular rate Lungs: Present: Clear to auscultation, Normal air movement Abdomen: Present: soft, distention, normal bowel sounds Uterus: Present: fundal height below umbilicus. Absent: tenderness Extremities: Present: normal Incision: Present: dressed - Labs Labs: Abnormal lab results 09/11/19 09/12/19 09/13/19 Range/Units 10:50 23:06 00:18 Hgb 7.3 L D (10.1-14.3) gm/dl Hct 21.6 L D (30.3-42.9) % POC Glucose 162 H (70-105) Crossmatch See Detail 09/13/19 Range/Units 04:49 Hgb 6.6 L (10.1-14.3) gm/dl Hct 20.3 L (30.3-42.9) % POC Glucose (70-105) Crossmatch
[2019-09-13] MEDS: IBUPROFEN 800 MG TAB PO PRN (18:10)
[2019-09-13 21:19] LABS: Hematocrit 26.9 % (30.3-42.9); Hemoglobin 8.9 gm/dl (10.1-14.3)
[2019-09-14] MEDS: IBUPROFEN 800 MG TAB PO PRN ×2 (09:16→17:11)
[2019-09-14] MEDS: HYDROcodone/ACETAMINOPHEN 5-325 MG TAB PO PRN (09:18)
--- NOTE | 2019-09-14 10:42 | Progress Note ---
Assessment and Plan - Patient Problems (1) delivery delivered Current Visit: Yes Status: Acute (2) Anemia Current Visit: Yes Status: Acute Qualifiers: Other causes of anemia: acute posthemorrhagic Plan to address problem: s/p transfusion 2u BANNER with appropriate elevation of H/H Tachycardia noted, will observe today, will need additional evaluation if symptoms occur or still present tomorrow (3) AMA (advanced maternal age) multigravida 35+ Current Visit: Yes Status: Chronic (4) Hepatitis B Current Visit: Yes Status: Chronic Qualifiers: Viral hepatitis chronicity: chronic (5) Insulin controlled gestational diabetes mellitus (GDM) in third trimester Current Visit: Yes Status: Acute Plan to address problem: 2hGTT at 6week PP visit Subjective - Subjective Date of service: 09/14/19 Principal diagnosis: POD#2 C/S, PPH, anemia Interval history: Resting in bed, no complaints, minimal bleeding Patient reports: appetite normal, voiding normally, pain well controlled, flatus, ambulating normally Objective - Vital Signs Latest vital signs: Vital Signs Temp Pulse Resp BP BP Pulse Ox 09/14/19 09:18 20 09/14/19 09:16 20 09/14/19 08:12 97.9 F 113 H 18 115/76 09/14/19 01:00 98.3 F 106 H 18 111/71 97 09/13/19 16:09 97.4 F L 109 H 18 115/74 09/13/19 14:33 98.3 F 112 H 20 113/70 96 09/13/19 14:30 97.5 F L 112 H 20 110/68 96 09/13/19 14:00 98.8 F 122 H 18 116/70 97 09/13/19 13:30 98.7 F 113 H 20 122/74 97 09/13/19 13:10 20 09/13/19 13:00 98.5 F 118 H 20 113/69 96 09/13/19 12:27 98.6 F 104 H 20 111/68 96 09/13/19 12:26 97.4 F L 114 H 18 122/67 09/13/19 11:59 99 F 117 H 20 106/65 97 09/13/19 11:29 98.8 F 116 H 20 105/65 97 09/13/19 10:59 98.7 F 116 H 20 107/65 97 Intake and Output 09/13/19 09/14/19 09/14/19 22:59 06:59 14:59 Intake Total 480 360 480 Output Total 700 Balance -220 360 480 Intake: Oral 480 480 Intake, Free Water 360 Blood Product 0 Leukoreduced Red Blood 0 Cells Unit [id number] Output: Urine 700 Void 700 Other: Total, Intake Amount 480 480 Total, Output Amount 700 # Voids Void 2 - Exam Breasts: Present: normal Cardiovascular: Present: Other (tachycardia) Lungs: Present: Clear to auscultation, Normal air movement Abdomen: Present: normal appearance, soft, distention, normal bowel sounds. Absent: tenderness, guarding Uterus: Present: fundal height below umbilicus. Absent: tenderness Extremities: Present: edema (trace) Incision: Present: normal, dry, intact - Labs Labs: Abnormal lab results 09/11/19 09/13/19 09/13/19 Range/Units 10:50 18:01 21:06 Hgb 8.9 L (10.1-14.3) gm/dl Hct 26.9 L D (30.3-42.9) % POC Glucose 111 H (70-105) Crossmatch See Detail
[2019-09-15] MEDS: IBUPROFEN 800 MG TAB PO PRN (06:17)
[2019-09-15] MEDS: SIMETHICONE 80 MG CHEW TAB PO PRN (06:53)
--- NOTE | 2019-09-15 09:26 | Discharge Summary ---
Providers - Providers Date of Admission: 09/11/19 08:40 Date of discharge: 09/15/19 (Pt has strong desire to go home) Attending physician: YEVGENIY HONG Primary care physician: YEVGENIY HONG Hospitalization Reason for admission: induction of labor (IOL d/t Insulin dependent GDM) Delivery: Procedure: section Episiotomy: none Laceration: none Incision: normal, dry, intact Other procedures: none complications: transfusion Discharge diagnosis: IUP at term delivered [place] baby: female Hospital course: S: Pt doing well at this time. States passing flatus, ambulating, voiding, and eating without difficulty. Has a strong desire to go home. Denies feeling dizzy, lightheaded. O: VSS, with pulse noted to be in the 70'-80's. H/H 8.9/26.9 after transfusion. S/p transfusion 2 units of PRBCs on 09/13/2019. Adequate I&O. FF@U. Minimal rubra. A: 39 y.o. s/p for failure to decend @ PPD #3 with PPH, anemia after . P: Discharge home with instructions. Schedule an appointment in office in 1 week for incision check. Condition at discharge: Good Disposition: DC-01 TO HOME OR SELFCARE - Discharge Diagnoses (1) 39 weeks gestation of Status: Acute (2) Insulin controlled gestational diabetes mellitus (GDM) in third trimester Status: Acute Plan - Discharge Medications Prescriptions: Docusate Sodium [Colace] 100 mg PO BID PRN #60 capsule PRN Reason: Constipation Ferrous Sulfate [Feosol 325 MG tab] 325 mg PO QDAY #60 tablet Ibuprofen [Motrin 800 MG tab] 800 mg PO Q8HR PRN #30 tablet PRN Reason: Pain, Moderate (4-6) oxyCODONE /ACETAMINOPHEN [Percocet 5/325] 1 tab PO Q4HR #30 tab - Provider Discharge Summary Activity: routine, no sex for 6 weeks, no heavy lifting 4 weeks, no strenuous exercise Diet: routine Instructions: routine Additional instructions: [] Smoking cessation referral if applicable(refer to patient education folder for contact #) [] Refer to [facility] Booklet Call your doctor immediately for: * Fever > 100.5 * Heavy vaginal bleeding ( >1 pad per hour) * Severe persistent headache * Shortness of breath * Reddened, hot, painful area to leg or breast * Drainage or odor from incision. * Keep incision clean and dry at all times and follow doctor's instructions regarding bathing/showering - Follow up plan Follow up: YEVGENIY HONG MD [Primary Care Provider] - 7 Days (Congratulations!! Please follow up in the office in 1 week for an incision check. If any questions or concerns, please call office. [address] [facility], [address] )
[2019-09-15 15:13] VITALS: BP 116/69
== END 2019-09-15 12:30 | disposition home or self-care (01) | DRG 787 ==
LOC: LD 08:39 → TRG 08:39 → LD 08:40 → TRG 08:40 → OB 09-12 19:17
PROVIDERS: ADMIT Obstetrics & Gynecology; ATTEND Obstetrics & Gynecology
PROC: 10D00Z1 Extraction of Products of Conception, Low, Open Approach (ICD-10-PCS; principal; 2019-09-12)
PROC: 3E033VJ Introduction of Other Hormone into Peripheral Vein, Percutaneous Approach (ICD-10-PCS; 2019-09-12)
PROC: 3E0234Z Introduction of Serum, Toxoid and Vaccine into Muscle, Percutaneous Approach (ICD-10-PCS; 2019-09-13)
PROC: 30233N1 Transfusion of Nonautologous Red Blood Cells into Peripheral Vein, Percutaneous Approach (ICD-10-PCS; 2019-09-13)
DX: O24.424 Gestational diabetes mellitus in childbirth, insulin controlled (principal); O72.1 Other immediate postpartum hemorrhage; O98.42 Viral hepatitis complicating childbirth; D62 Acute posthemorrhagic anemia; B18.1 Chronic viral hepatitis B without delta-agent; O32.4XX0 Maternal care for high head at term, not applicable or unspecified; O99.03 Anemia complicating the puerperium; O76 Abnormality in fetal heart rate and rhythm complicating labor and delivery; Z90.6 Acquired absence of other parts of urinary tract; Z37.0 Single live birth; Z23 Encounter for immunization; Z3A.39 39 weeks gestation of pregnancy; Z79.4 Long term (current) use of insulin
CPT/HCPCS: 36415; 82962; 83036; 85014; 85018; 85027; 86592; 86850; 86900; 86901; 86920; 88307; 90686; G0378; J0595; J0690; J1170; J1885; J2405; J2590; J3010; J3490; J7050; J7120; J7121; P9016

== ENCOUNTER 2021-09-08 08:32 | Outpatient (CLI) | payer BC ==
[2021-09-08] MEDS ORDERED: LACTATED RINGERS 1,000 ML ONE (09:21)
--- NOTE | 2021-09-08 10:14 | Ultrasound Report ---
ULTRASOUND OBSTETRIC LIMITED ULTRASOUND BIOPHYSICAL PROFILE INDICATION / CLINICAL INFORMATION: DECREASED MOVEMENT. Clinical Gestational Age (GA) in weeks, days: 29, 3 TECHNIQUE: Transabdominal. COMPARISON: None available. FINDINGS: BREATHING MOVEMENT = 2 GROSS BODY MOVEMENT = 2 TONE = 2 QUALITATIVE AMNIOTIC FLUID VOLUME = 2 TOTAL BIOPHYSICAL SCORE = 8/8 HEART RATE (beats per minute): 156 PRESENTATION: Transverse. ADDITIONAL FINDINGS: None. IMPRESSION: 1. Biophysical Score = 8/8 Signer Name: Freddy Fisher DO Signed: 09/08/2021 10:10 AM Workstation Name: [employer]
[2021-09-08] MEDS ORDERED: LACTATED RINGERS 500 ML IV ONE (10:22)
[2021-09-08 11:13] VITALS: BP 104/68
== END 2021-09-08 11:28 | disposition home or self-care (01) ==
LOC: TRG 08:32 → APU 08:33 → TRG 11:28
PROVIDERS: ATTEND Student in an Organized Health Care Education/Training Program
DX: O36.8130 Decreased fetal movements, third trimester, not applicable or unspecified (principal); O26.893 Other specified pregnancy related conditions, third trimester; M54.9 Dorsalgia, unspecified; R10.9 Unspecified abdominal pain; O09.523 Supervision of elderly multigravida, third trimester; O24.419 Gestational diabetes mellitus in pregnancy, unspecified control; Z3A.29 29 weeks gestation of pregnancy
CPT/HCPCS: 59025; 76819; 96360; J7120

== ENCOUNTER 2021-11-14 06:12 | Inpatient (IN) | payer BC ==
[2021-11-11 12:51] LABS: Blood Urea Nitrogen 6 mg/dL (7-17); Calcium 9.3 mg/dL (8.4-10.2); Hematocrit 35.1 % (30.3-42.9); Hemoglobin 11.9 gm/dl (10.1-14.3); Hemolysis Index 0; Mean Corpuscular HGB Conc 34 % (30-34); Mean Corpuscular Volume 85 fl (79-97); Platelet Count 201 K/mm3 (140-440); Red Blood Count 4.13 M/mm3 (3.65-5.03)
[2021-11-11 12:52] LABS: BUN/Creatinine Ratio 12
[2021-11-11 13:03] LABS: Red Cell Distribution Width 20.6 % (13.2-15.2)
--- NOTE | 2021-11-13 13:55 | History and Physical Report ---
History of Present Illness Date of examination: 11/07/21 History of present illness: Patient admitted for repeat section. Patient informed the risks of the surgery include bleeding possibly bleeding heavy enough to require blood transfusion, infection possible damage to bowel bladder ureter. Patient understands that due to her previous surgery she is an increased risks of adjacent organ damage. Patient's questions answered. Patient understands and desires to proceed. Menstrual History Regularity: regular Menses every: 28 days Duration: 4-5 LMP: 02/14/2021 LMP reliability: month known LMP character: normal test type: urine test Date: 07/01/2021 BC at conception: none Planned ? no EDC Calculations LMP: 11/21/2021 EDC Confirmation: 11/21/2021 Past History : 3 Term Births: 2 Premature Births: 0 Living Children: 2 Para: 2 Mult. Births: 0 Prev : 0 Prev. attempt? 0 Aborta: 0 Elect. Ab: 0 Spont. Ab: 0 Ectopics: 0 # 1 Delivery date: 06/04/2008 Weeks Gestation: 36 Delivery type: Sex: Male weight: 3.5kg # 2 Delivery date: 09/12/2019 Weeks Gestation: 38.6 Delivery type: Anesthesia type: epidural Delivery location: [facility] Sex: female weight: 8.25 Comments: gestational diabetes FAILURE TO DESCEND Past Medical History: Hepatitis B Past Surgical History: negative Social History: . lives with and children unemployed denies alcohol or drug use Risk Factors: Smoked Tobacco Use: Never smoker Smokeless Tobacco Use: Never Passive Smoke Exposure: no HIV High Risk Behavior: no Exercise: no Seatbelt Use: 100 % No Dietary Counseling Reason: pn yes Alcohol Use: no Drug Use: no Previous Tobacco Use: Signed On 04/02/2020 Smoked Tobacco Use: Never smoker Smokeless Tobacco Use: Never Passive Smoke Exposure: no HIV High Risk Behavior: no Caffeine Use: 0 drinks per day Exercise: yes Seatbelt Use: 100 % No Dietary Counseling Reason: pn yes Alcohol Use: no Drug Use: no Past Medical History Anesthesia Complications: negative Anemia: negative Autoimmune Disorder: negative Bleeding Disorder: negative Blood Transfusions: negative Breast Disease: negative Diabetes: negative Heart Disease: negative Hypertension: negative Hepatitis/Liver Disease: positive Kidney Disease/UTI: negative Neurologic/Epilepsy/Migraines: negative Phlebitis/Varicosities: negative Psychiatric: negative Pulmonary Disease/Asthma: negative Thyroid Disease: negative Hospitalizations: negative Surgery (Non-discovery manager): negative Social Hx: . lives with and children unemployed denies alcohol or drug use Infection History HIV Risk Eval: no Genetic History ADVANCED MATERNAL AGE Congenital Heart Defect: Mom: no Dad: no Jocelyne Disease: Mom: no Dad: no Thalassemia Mom: no Dad: no Neural Tube Defect Mom: no Dad: no Down's Syndrome Mom: no Dad: no Richie-Sachs Mom: no Dad: no Sickle Cell Disease/Trait Mom: no Dad: no Hemophilia Mom: no Dad: no Muscular Dystrophy Mom: no Dad: no Cystic Fibrosis Mom: no Dad: no [place] Chorea Mom: no Dad: no Mental Retardation Mom: no Dad: no Fragile X Mom: no Dad: no Other Genetic/Chromosomal Disorder Mom: no Dad: no Child w/other defect Mom: no Dad: no Enviromental Exposures Xray Exposure: no Medication, drug, or alcohol use since LMP: no Chemical/Other Exposure: no Exposure to Cat Liter: no Hx of Parvovirus (Fifth Disease): no Current Allergies: No known allergies Past History Past Medical History: other (See HPI) Past Surgical History: other (See HPI) 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) Family/Genetic History: other (See HPI) Social history: full code, other (See HPI) - Obstetrical History Expected Date of Delivery: 11/21/21 Actual Gestation: 39 Week(s) 0 Day(s) : 3 Para: 2 Hx # Term Pregnancies: 2 Number of Pregnancies: 0 Spontaneous Abortions: 0 Induced : 0 Number of Living Children: 2 Medications and Allergies Allergies Allergy/AdvReac Type Severity Reaction Status Date / Time No Known Allergies Allergy Verified 11/10/21 14:55 Home Medications Medication Instructions Recorded Confirmed Last Taken Type Insulin Glargine,Hum.rec.anlog 10 unit SQ HS 11/11/21 11/11/21 Unknown History [Lantus Solostar] Insulin NPH Human Isophane 30 units SUB-Q QAM 11/13/21 11/13/21 Unknown History [HumuLIN N] Review of Systems Constitutional: other - Vital Signs Vital signs: Vital Signs Temp Pulse Resp BP Pulse Ox 98.7 F 68 20 94/61 99 11/11/21 12:00 11/11/21 12:00 11/11/21 12:00 11/11/21 12:00 11/11/21 12:00 Temp Pulse Resp BP Pulse Ox 98.7 F 68 20 94/61 99 11/11/21 12:00 11/11/21 12:00 11/11/21 12:00 11/11/21 12:00 11/11/21 12:00 - Physical Exam Breasts: Positive: deferred Cardiovascular: Regular rate Lungs: Positive: Normal air movement Abdomen: Positive: normal appearance, soft, other (Gravid) Genitourinary (Female): Positive: normal external genitalia Uterus: Positive: enlarged - Obstetrical Uterine Contraction Pattern: Absent Uterine Tone Measurement Phase: Resting Results Result Diagrams: 11/11/21 12:05 11/11/21 12:05 All other labs normal. Assessment and Plan - Patient Problems (1) Maternal care due to uterine scar from other previous surgery Current Visit: No Status: Acute Plan to address problem: Discuss the risks of the surgery including infection, bleeding possibly heavy enough to require a blood transfusion, possible damage to bowel, bladder or ureter. Her questions were answered. Patient understands and desires to proceed (2) Breech presentation of fetus Current Visit: No Status: Acute Qualifiers: Fetus number: single or unspecified fetus Qualified Code(s): O32.1XX0 - Maternal care for breech presentation, not applicable or unspecified (3) 39 weeks gestation of Current Visit: No Status: Acute (4) Insulin controlled gestational diabetes mellitus (GDM) in third trimester Current Visit: No Status: Acute (5) AMA (advanced maternal age) multigravida 35+ Current Visit: No Status: Chronic Qualifiers: Trimester: third trimester Qualified Code(s): O09.523 - Supervision of elderly multigravida, third trimester (6) Hepatitis B Current Visit: No Status: Chronic Qualifiers: Viral hepatitis chronicity: chronic
[~2021-11-14 06:12] MED LIST: BICITRA ORAL LIQD 30ML PO SCH; ceFAZolin/Water 2 GM/20 ML 2 GM/20 ML SYRINGE IV SCH
[2021-11-14] MEDS ORDERED: HYDROmorphone 1 MG/1 ML INJ IV PRN (09:37)
--- NOTE | 2021-11-14 09:38 | Anesthesia Day of Surgery ---
Anesthesia Day of Surgery - Day of Surgery Patient Examined: Yes Patient H&P Reviewed: Yes Patient is NPO: Yes Beta Blockers: No Cardiac Clearance: No Pulmonary Clearance: No Cj's Test: N/A
--- NOTE | 2021-11-14 09:58 | Anesthesia Consultation ---
Anesthesia Consult and Med Hx Date of service: 11/14/21 - Airway Anesthetic Teeth Evaluation: Good ROM Head & Neck: Adequate Mental/Hyoid Distance: Adequate Mallampati Class: Class II Intubation Access Assessment: Probably Good - Pulmonary Exam CTA: Yes - Cardiac Exam Cardiac Exam: RRR - Pre-Operative Health Status ASA Pre-Surgery Classification: ASA2 Proposed Anesthetic Plan: Epidural - Pulmonary Hx Smoking: No Hx Asthma: No COPD: No Hx Pneumonia: No Hx Sleep Apnea: No - Cardiovascular System Hx Hypertension: No Hx Heart Attack/AMI: No Hx Angina: No - Central Nervous System Hx Seizures: No Hx Psychiatric Problems: No - Gastrointestinal Hx Gastroesophageal Reflux Disease: No - Endocrine Hx Renal Disease: No Hx End Stage Renal Disease: No Hx Liver Disease: No Hx Insulin Dependent Diabetes: No Hx Non-Insulin Dependent Diabetes: Yes (gDM) Hx Hypothyroidism: No Hx Hyperthyroidism: No - Hematic Hx Anemia: No Hx Sickle Cell Disease: No - Other Systems Hx Alcohol Use: No Hx Cancer: No - Additional Comments Anesthesia Medical History Comments: previous c/s
[2021-11-14] MEDS ORDERED: PROMETHAZINE 25 MG RECT SUPP PR PRN (10:00)
[2021-11-14] MEDS: LACTATED RINGERS 1,000 ML IV SCH ×2 (10:00→10:36)
[2021-11-14] MEDS ORDERED: ONDANSETRON 4 MG/2 ML INJ IV PRN ×2 (10:00→15:22)
[2021-11-14] MEDS ORDERED: diphenhydrAMINE 50 MG/ML VIAL IV PRN (10:00)
[2021-11-14] MEDS ORDERED: NALOXONE 0.4 MG/1 ML INJ IV PRN ×2 (10:00→15:22)
[2021-11-14] MEDS ORDERED: NalbUPHINE 10 MG/1 ML INJ IV PRN (10:00)
[2021-11-14] MEDS ORDERED: PROMETHAZINE 25 MG TAB PO PRN (10:00)
[2021-11-14] MEDS ORDERED: FAMOTIDINE 20 MG/2 ML INJ IV SCH (11:00)
[2021-11-14] MEDS ORDERED: METOCLOPRAMIDE 10 MG/2 ML INJ IV ONE (11:00)
[2021-11-14] MEDS ORDERED: LACTATED RINGERS 1,000 ML ONE (11:51)
[2021-11-14] MEDS ORDERED: ePHEDrine SULFATE 50 MG/1 ML INJ ONE (11:51)
[2021-11-14] MEDS ORDERED: PHENYLEPHRINE/NS 1,000 MCG/10 ML SYRINGE (OR USE) IV ONE (11:51)
[2021-11-14] MEDS ORDERED: OXYTOCIN DRIP 30 UNITS/500 ML BAG IV SCH ×2 (12:00→15:22)
[2021-11-14] MEDS ORDERED: KETOROLAC 30 MG/1 ML INJ ONE (12:05)
[2021-11-14] MEDS ORDERED: BUPIVACAINE/PF (0.5%) 5 MG/1 ML 30 ML VIAL INFILTRATI ONE (12:05)
[2021-11-14] MEDS ORDERED: dexAMETHasone 20 MG/5 ML VIAL ONE (12:05)
[2021-11-14] MEDS ORDERED: ONDANSETRON 4 MG/2 ML INJ ONE (12:05)
[2021-11-14] MEDS ORDERED: WATER FOR IRRIG STERILE 1,500 ML BOTTLE IR ONE (12:06)
[2021-11-14] MEDS ORDERED: SODIUM CHLORIDE 0.9% IRR 1,500 ML BOTTLE IR ONE (12:06)
[2021-11-14] MEDS ORDERED: ceFAZolin/STERILE WATER 2 GM/20 ML SYRINGE IV ONE (12:06)
[2021-11-14] MEDS ORDERED: ESMOLOL 100 MG/10 ML INJ IV ONE (12:32)
--- NOTE | 2021-11-14 13:08 | Operative Report ---
Operative Report Operative Report: Date of procedure: November 14, 2021 Pre-operative diagnosis: Intrauterine at 39 weeks with previous section, gestational insulin-dependent diabetes and breech presentation Post-operative diagnosis: Same Procedure name(s): Repeat low transverse section Surgeon: Drew Man MD Accounts Payable Processor: GENEVA Anesthesia: Spinal EBL: Quantitative blood loss equals 634 cc Complications: None Findings: Patient with normal uterus tubes and ovaries bilaterally some filmy a dhesions in anterior uterus and bladder. Female infant weight 6 pounds 13 ounces Apgars 8 at 1 minute and 9 at 5 minutes Specimen(s): None Procedure: The patient was brought to the operating room. A spinal was placed without any complications. She was then placed in left lateral tilt. Prepped and draped in the usual sterile manner. Preoperative timeout was performed. After testing for adequate anesthesia level, a Pfannenstiel incision was made through her previous scar. This incision was taken down to the fascia. The fascia was then nicked in the midline. This incision was extended out laterally with Diaz scissors. The fascia was then sharply and bluntly from the underlying rectus muscles. The rectus muscles were bluntly and sharply . The peritoneum was then entered with the drill press operator's fingers. This incision was spread vertically with care not to damage the bladder below.The Alvaro self-retaining tractor was then placed without any difficulty. The b ladder flap was then formed sharply and bluntly with Metzenbaum scissors. A transverse incision was made in lower uterine segment. This incision was extended laterally with the operators fingers. The amniotic sac was then entered bluntly with the drill press operator's fingers. The infant was delivered from the vertex position. Bulb suction on the mother's abdomen. Cord was double clamped and cut. The infant was then passed to the nursery personnel who were in attendance. The above scores were given by the nursery personnel. The placenta was then bluntly removed. The uterus was then externalized and wiped clean the remaining products. The uterine incision was closed in layers. The first incision was closed in a locking manner using 0 Vicryl. This was followed by imbricating stitch also with 0 Vicryl. This closure was hemostatic after additional [id number] sutures were placed. The bladder flap was copiously irrigated and found to be hemostatic. The pelvis was copiously irrigated and found to be hemostatic. The uterus was then placed back to the patient's abdomen. The retractors were removed. The rectus muscles were inspected and found to be hemostatic. The fascia was then closed in a running manner using 0 Vicryl. This incision was hemostatic irrigation Bovie. The skin was reapproximated with 4-0 Vicryl subcuticularly. The patient tolerated procedure well. Her urine was clear. The infant was admitted to the well baby nursery. The patient was accompanied to recovery room in good condition. Instrument count correct x3.
--- NOTE | 2021-11-14 13:16 | Progress Note ---
Spinal Anesthesia Block - Spinal Anesthesia Block Start Time: 11:45 Stop Time: 11:55 Performed by:: ESTEPHANIE BECK Procedure: Spinal anesthesia block is being performed for [c/s]. H&P, labs have been reviewed. Patient's questions and concerns have been answered. Informed consent has been performed. Timeout has was performed. Patient in sitting position on side of bed. Sterile prep and drape was performed. 3 mL 1% lidocaine skin wheal at L [3]-L [4]. Needle introducer advanced. 25-gauge spinal needle advanced, [+] CSF [-] blood. [Marcaine 10mg and Precedex 5mcg] Spinal dose was given. All needles removed. Patient tolerated procedure well.
[2021-11-14] MEDS ORDERED: WITCH HAZEL/ GLYCERIN PAD TP PRN (15:22)
[2021-11-14] MEDS ORDERED: LANOLIN/ZINC/DIMETHICONE (LANSINOH) 7 GM TP PRN (15:22)
[2021-11-14] MEDS ORDERED: HYDROcodone/ACETAMINOPHEN 5-325 MG TAB PO PRN (15:22)
[2021-11-14] MEDS ORDERED: DEXTROSE 50% IN WATER (25GM) 50 ML SYRINGE IV PRN (15:22)
[2021-11-14] MEDS ORDERED: MAGNESIUM HYDROXIDE (MOM) ORAL LIQD UDC PO PRN (15:22)
[2021-11-14] MEDS ORDERED: SENNOSIDES 8.6 MG TAB PO PRN (15:22)
[2021-11-14] MEDS ORDERED: DEXTROSE 10% *Hypoglycemia IV PRN (15:34)
[2021-11-14] MEDS: D5W/LACTATED RINGERS 1,000 ML IV SCH ×2 (16:07→23:35)
[2021-11-14] MEDS: KETOROLAC 30 MG/1 ML INJ IV SCH ×2 (16:15→21:35)
[2021-11-14] MEDS: INSULIN REGULAR, HUMAN 100 UNITS/1 ML SUB-Q SCH (16:21)
[2021-11-14] MEDS: ceFAZolin/NS 1 GM/50 ML 1 GM/50 ML BAG IV SCH (20:41)
[2021-11-14] MEDS: HYDROmorphone 1 MG/1 ML INJ IV PRN (23:42)
[2021-11-15] MEDS: INSULIN REGULAR, HUMAN 100 UNITS/1 ML SUB-Q SCH ×2 (00:07→06:39)
[2021-11-15 01:23] LABS: Hematocrit 33.9 % (30.3-42.9); Hemoglobin 10.6 gm/dl (10.1-14.3)
[2021-11-15] MEDS: ceFAZolin/NS 1 GM/50 ML 1 GM/50 ML BAG IV SCH (04:38)
[2021-11-15] MEDS: KETOROLAC 30 MG/1 ML INJ IV SCH (04:38)
[2021-11-15] MEDS: HYDROmorphone 1 MG/1 ML INJ IV PRN (05:51)
--- NOTE | 2021-11-15 08:02 | Progress Note ---
Assessment and Plan Pt doing well, expressed pain over night. Medication given this am and pain is better now. No concerns or complaints, all questions addressed. VSSAF post op H/H 10.6/33.9. - Patient Problems (1) delivery delivered Current Visit: Yes Status: Acute Plan to address problem: continue postop pathway advance diet and activity as tolerated Subjective - Subjective Date of service: 11/15/21 Principal diagnosis: postop day #1 s/p repeat c/s Patient reports: appetite normal, voiding normally, pain well controlled, ambulating normally, no dizzy ambulation, no flatus, no bowel movement, no nauseated [place]: doing well, bottle feeding Objective - Vital Signs Latest vital signs: Vital Signs Temp Pulse Resp BP BP Pulse Ox Pulse Ox 11/15/21 05:51 16 11/15/21 05:20 98.2 F 78 18 111/65 95 11/15/21 05:08 16 11/15/21 04:38 16 11/15/21 00:28 97.9 F 95 H 18 117/60 97 11/14/21 23:42 18 11/14/21 21:35 18 11/14/21 21:20 98 11/14/21 20:59 98.0 F 101 H 18 111/69 96 11/14/21 15:53 96 11/14/21 15:00 97.4 F L 92 H 19 108/69 96 11/14/21 13:52 97.4 F L 11/14/21 13:35 93 H 14 116/73 99 11/14/21 13:20 98 H 14 111/69 99 11/14/21 13:15 98 H 14 119/64 99 11/14/21 13:10 98 H 14 109/71 98 11/14/21 13:05 108 H 15 113/52 99 11/14/21 12:57 97.5 F L 102 H 15 114/62 99 11/14/21 11:28 101 H 99 11/14/21 11:23 103 H 99 11/14/21 11:18 98 H 100 11/14/21 11:13 102 H 100 11/14/21 11:08 91 H 100 11/14/21 11:03 95 H 100 11/14/21 10:58 100 H 100 11/14/21 10:53 93 H 99 11/14/21 10:48 91 H 98 11/14/21 10:37 104 H 98 11/14/21 10:32 96 H 97 11/14/21 10:27 100 H 98 11/14/21 10:24 98 F 99 H 18 116/66 98 11/14/21 10:22 95 H 98 11/14/21 10:17 99 H 98 11/14/21 10:12 102 H 98 11/14/21 10:07 103 H 98 11/14/21 10:02 106 H 100 11/14/21 09:57 107 H 98 11/14/21 09:52 99 H 98 11/14/21 09:47 103 H 97 11/14/21 09:43 85 94 11/14/21 09:42 103 H 99 11/14/21 09:37 103 H 116/66 99 11/14/21 09:34 98 F 102 H 16 116/66 Intake and Output 11/14/21 11/15/21 11/15/21 23:59 07:59 15:59 Intake Total 1433.333 120 Output Total 1700 1200 Balance -266.667 -1080 Intake: IV 983.333 ANCEF/NS 1 GM/50 ML 1 gm 50 In 50 ml @ 100 mls/hr IV Q8H TAMIKA Rx#:[id number] D5lr 1,000 ml @ 125 mls/ 933.333 hr IV DIRECT TAMIKA Rx#: [id number] Oral 450 120 Output: Urine 1700 1200 Indwelling Catheter 1700 600 Void 600 Other: Total, Intake Amount 360 120 Total, Output Amount 700 600 # Voids Indwelling Catheter 1 Void 1 - Exam Breasts: Present: normal Abdomen: Present: normal appearance, soft, tenderness Uterus: Present: normal, firm Extremities: Present: normal Incision: Present: normal, dry, intact - Labs Labs: Abnormal lab results 11/14/21 Range/Units 22:22 POC Glucose 133 H (70-105) mg/dL
[2021-11-15] MEDS: HYDROcodone/ACETAMINOPHEN 5-325 MG TAB PO PRN ×2 (08:42→21:46)
--- NOTE | 2021-11-15 09:35 | Progress Note ---
Assessment and Plan A: S/P Repeat LTCS P: Continue routine pp orders Encourage ambulation D/C home tomm if stable Subjective - Subjective Date of service: 11/15/21 Principal diagnosis: postop day #1 s/p repeat c/s Patient reports: appetite normal, voiding normally, pain well controlled, flatus, ambulating normally [place]: doing well, bottle feeding Objective - Vital Signs Latest vital signs: Vital Signs Temp Pulse Resp BP BP Pulse Ox Pulse Ox 11/15/21 07:42 97.9 F 11/15/21 07:41 97.3 F L 70 18 109/70 95 11/15/21 05:51 16 11/15/21 05:20 98.2 F 78 18 111/65 95 11/15/21 05:08 16 11/15/21 04:38 16 11/15/21 00:28 97.9 F 95 H 18 117/60 97 11/14/21 23:42 18 11/14/21 21:35 18 11/14/21 21:20 98 11/14/21 20:59 98.0 F 101 H 18 111/69 96 11/14/21 15:53 96 11/14/21 15:00 97.4 F L 92 H 19 108/69 96 11/14/21 13:52 97.4 F L 11/14/21 13:35 93 H 14 116/73 99 11/14/21 13:20 98 H 14 111/69 99 11/14/21 13:15 98 H 14 119/64 99 11/14/21 13:10 98 H 14 109/71 98 11/14/21 13:05 108 H 15 113/52 99 11/14/21 12:57 97.5 F L 102 H 15 114/62 99 11/14/21 11:28 101 H 99 11/14/21 11:23 103 H 99 11/14/21 11:18 98 H 100 11/14/21 11:13 102 H 100 11/14/21 11:08 91 H 100 11/14/21 11:03 95 H 100 11/14/21 10:58 100 H 100 11/14/21 10:53 93 H 99 11/14/21 10:48 91 H 98 11/14/21 10:37 104 H 98 11/14/21 10:32 96 H 97 11/14/21 10:27 100 H 98 11/14/21 10:24 98 F 99 H 18 116/66 98 11/14/21 10:22 95 H 98 11/14/21 10:17 99 H 98 11/14/21 10:12 102 H 98 11/14/21 10:07 103 H 98 11/14/21 10:02 106 H 100 11/14/21 09:57 107 H 98 11/14/21 09:52 99 H 98 11/14/21 09:47 103 H 97 11/14/21 09:43 85 94 11/14/21 09:42 103 H 99 11/14/21 09:37 103 H 116/66 99 11/14/21 09:34 98 F 102 H 16 116/66 Intake and Output 11/14/21 11/15/21 11/15/21 22:59 06:59 14:59 Intake Total 500 1053.333 Output Total 1700 1200 Balance -1200 -146.667 Intake: IV 50 933.333 ANCEF/NS 1 GM/50 ML 1 gm 50 In 50 ml @ 100 mls/hr IV Q8H TAMIKA Rx#:[id number] D5lr 1,000 ml @ 125 mls/ 933.333 hr IV DIRECT TAMIKA Rx#: [id number] Oral 450 120 Output: Urine 1700 1200 Indwelling Catheter 1700 600 Void 600 Other: Total, Intake Amount 360 120 Total, Output Amount 700 600 # Voids Indwelling Catheter 1 Void 1 - Exam Breasts: Present: normal Abdomen: Present: normal appearance, soft, normal bowel sounds Vulva: both: normal Uterus: Present: normal, firm Extremities: Present: normal Incision: Present: normal, dry, intact - Labs Labs: Abnormal lab results 11/14/21 Range/Units 22:22 POC Glucose 133 H (70-105) mg/dL
[2021-11-15] MEDS ORDERED: FERROUS SULFATE 325 MG TAB PO SCH (10:00)
[2021-11-15] MEDS ORDERED: PRENATAL VIT27-FE FUMARATE-FOLIC ACID VIT TAB PO SCH (10:00)
[2021-11-15] MEDS ORDERED: MEASLES, MUMPS & RUBELLA 12,500 UNIT/0.5 ML VACCINE SUB-Q ONE (13:13)
[2021-11-15] MEDS: IBUPROFEN 600 MG TAB PO PRN (15:12)
[2021-11-16] MEDS: HYDROcodone/ACETAMINOPHEN 5-325 MG TAB PO PRN (04:53)
[2021-11-16] MEDS: IBUPROFEN 600 MG TAB PO PRN (06:07)
--- NOTE | 2021-11-16 08:51 | Discharge Summary ---
Providers - Providers Date of Admission: 11/14/21 09:06 Date of discharge: 11/16/21 Attending physician: YEVGENIY HONG 11/14/21 15:22 Consult to [employer] [CONS] Routine Reason For Exam: Primary care physician: YEVGENIY HONG Hospitalization Reason for admission: section Delivery: Procedure: repeat low transverse Episiotomy: none Laceration: none Incision: normal, dry, intact Other procedures: none complications: none Discharge diagnosis: IUP at term delivered baby: female Hospital course: S: Pt doing well and has a strong desire to go home at this time. Ambulating, voiding, passing flatus okay. BC: IUD O: VSS. Fundus firm, minimal bleeding noted. H/H 10.6/33.9. Incision open to air, intact, no s/sx of infection and no drainage noted. A: 41 y.o. s/p rpt at term, POD #2. In good condition . P: Discharge home with instructions. Pt to keep scheduled post op appointment in the office. Condition at discharge: Good Disposition: 01 HOME / SELF CARE / HOMELESS Plan - Discharge Medications Prescriptions: Docusate Sodium [Colace] 100 mg PO BID PRN #30 capsule PRN Reason: Constipation Ibuprofen [Motrin] 800 mg PO Q8HR PRN #30 tablet PRN Reason: Pain, Moderate (4-6) oxyCODONE /ACETAMINOPHEN [Percocet 5/325 mg] 1 - 2 tab PO Q6HR PRN #20 tablet PRN Reason: Pain - Provider Discharge Summary Activity: routine, no sex for 6 weeks, no heavy lifting 4 weeks, no strenuous exercise Diet: routine Instructions: routine Additional instructions: [] Smoking cessation referral if applicable(refer to patient education folder for contact #) [] Refer to [facility] Booklet Call your doctor immediately for: * Fever > 100.5 * Heavy vaginal bleeding ( >1 pad per hour) * Severe persistent headache * Shortness of breath * Reddened, hot, painful area to leg or breast * Drainage or odor from incision. * Congratulations on the of your baby girl! * Please keep your scheduled post op appointment. * Should you have any questions or concerns after discharge, please call [phone]. * Keep incision clean and dry at all times and follow doctor's instructions regarding bathing/showering - Follow up plan Follow up: YEVGENIY HONG MD [Primary Care Provider] - 7 Days
[2021-11-16 19:06] VITALS: BP 107/68
== END 2021-11-16 13:35 | disposition home or self-care (01) | DRG 787 ==
LOC: APU 09:06 → OB 15:07
PROVIDERS: ADMIT Obstetrics & Gynecology; ATTEND Obstetrics & Gynecology
PROC: 10D00Z1 Extraction of Products of Conception, Low, Open Approach (ICD-10-PCS; principal; 2021-11-14)
PROC: 3E0234Z Introduction of Serum, Toxoid and Vaccine into Muscle, Percutaneous Approach (ICD-10-PCS; 2021-11-15)
DX: O32.1XX0 Maternal care for breech presentation, not applicable or unspecified (principal); O98.42 Viral hepatitis complicating childbirth; B18.1 Chronic viral hepatitis B without delta-agent; O34.211 Maternal care for low transverse scar from previous cesarean delivery; Z3A.39 39 weeks gestation of pregnancy; Z37.0 Single live birth; Z20.822 Contact with and (suspected) exposure to COVID-19; Z23 Encounter for immunization; O24.424 Gestational diabetes mellitus in childbirth, insulin controlled; O99.892 Other specified diseases and conditions complicating childbirth; N73.6 Female pelvic peritoneal adhesions (postinfective)
CPT/HCPCS: 36415; 80048; 82962; 85014; 85018; 85027; 86592; 86850; 86900; 86901; G0378; J3490; J7060; J7121; C1765; J0690; J1100; J1170; J1885; J2370; J2405; J2765; J7120; U0003